=== PATIENT | male | born 1950 | race Caucasian/White ===

== ENCOUNTER 2023-07-21 10:05 | Inpatient (IN) | payer MEDICARE, SELFPAY ==
[2023-07-21 10:06] VITALS: BP 139/82; PULSE 93; RESP 16; TEMP 36.6; O2SAT 97
[2023-07-21 10:35] VITALS: BMI 16.1
[2023-07-21 10:36] VITALS: PULSE 61; RESP 12; O2SAT 98
--- NOTE | 2023-07-21 11:02 | EX.ED.DYSGE1 ---
HPI History of Present Illness Chief Complaint: Sore Throat Detail of Chief Complaint: Sent because of throat pain, difficulty swallowing and history of thrush Informant: patient and spouse/S.O. Onset/Context/Timing Onset: Days Context: Sudden Onset Timing: Continuous Quality: Difficulty in pain swallowing Location: GI Current Severity: Moderate Maximum Severity: Moderate Worsened by: Possibly radiation for stage III lung cancer Relieved by: Nothing Associated Symptoms Associated Symptoms: Shortness of breath and cough Narrative Narrative: Patient is a 73-year-old male with stage III lung cancer with invasion into spine and lower ribs. The lesion is in the right lower lobe. His oncologist is Dr. Dave Rodarte. Patient has not eaten or had much to drink in the last several days. He does endorse thirst and dry mouth. He states when he takes his pills they get stuck in past after some time. Presumption is that they dissolve. He denies history of esophageal strictures or requiring dilation. He does not have a GI specialist. He denies fever or chills. He does have night sweats. He has had significant weight loss. He denies headache, visual, ocular auditory symptoms. He does endorse cough cough is nonproductive. He does report shortness of breath that has gotten worse over the past several weeks. According to outside records Dr. Camarena is his radiation oncologist. Patient does endorse decreased urine output. He denies orthostatic symptoms. He denies bruising easily. He is presently on nystatin suspension for thrush that is felt to be secondary to steroids. [facility] Medical History GERD (gastroesophageal reflux disease) Lung cancer Home Medications dexamethasone 4 mg tablet 8 mg PO DAILY 07/21/23 [History Last Taken 07/21/23] nystatin 100,000 unit/mL oral suspension 5 ml PO Q6H 07/21/23 [History Last Taken 07/20/23] omeprazole 40 mg capsule,delayed release 40 mg PO DAILY 07/21/23 [History Last Taken 07/20/23] oxycodone 5 mg tablet 5 mg PO Q6H PRN pain 07/21/23 [History Last Taken 07/21/23] Allergy/AdvReac Type Severity Reaction Status Date / Time No Known Allergies Allergy Verified 07/21/23 10:07 Social History (Updated 07/21/23 @ 11:[address] Thom Alvarez MD) household members: spouse Smoking Status: Current every day smoker tobacco type: cigarettes substance use type: does not use ROS ROS ED Constitutional Constitutional ED: Reports sweats and weight loss; Denies chills, fever(s) or subjective Eyes Eyes: Denies blurry vision, change in vision or diplopia ENT ENT ED: Reports sore throat; Denies ear pain or rhinorrhea Cardiovascular Cardiovascular: Denies chest pain, orthopnea, palpitations, paroxysmal nocturnal dyspnea or racing heartbeat Respiratory/Chest Respiratory/Chest: Reports cough, dyspnea and dyspnea on exertion; Denies orthopnea, paroxysmal nocturnal dyspnea or sputum Gastrointestinal Gastrointestinal: Denies abdominal pain, nausea or vomiting Genitourinary Genitourinary ED: Denies dysuria, hematuria or urinary frequency Musculoskeletal Musculoskeletal: Denies arthralgias, back pain, myalgias or neck pain Neurologic Neurologic: Denies headache(s), paresthesias or weakness Psychiatric Psychiatric: Reports depression; Denies anxiety Endocrine Endocrinology: Denies cold intolerance or heat intolerance Hematologic/Lymphatic Hematologic/Lymphatic: Reports as per HPI EXAM Physical Exam Const Vital Signs: 07/21/23 10:06 07/21/23 10:36 07/21/23 12:48 Temperature 97.9 F Temperature Source Temporal Pulse Rate 93 61 Respiratory Rate 16 12 22 H Blood Pressure 139/82 H 143/63 H Blood Pressure Mean 101 89 Pulse Ox 97 98 97 Oxygen Delivery Method Room Air Room Air Positive well developed and cachectic Constitutional Narrative: Patient does not look well. There is wasting at the temporal region. General Appearance ED: well developed, cachectic and pallor; Negative for cyanotic, diaphoretic or NAD Nutritional Appearance: cachectic HEENT Reports dry mucous membranes HEENT Narrative: I do not appreciate any thrush. Uvula is midline. Posterior pharynx reveals no erythema. Nares patent. Ears are normal. Mouth ED: Yes dry mucous membranes Mouth: dry mucous membranes Eyes PERRL and EOMs intact bilaterally General Eye ED: Yes pale conjunctiva; Negative for scleral icterus Neck no lymphadenopathy, supple and no JVD Chest Wall palpation of chest normal; Negative for inspection of chest normal Chest Narrative: Radiation burn posterior lower rib cage/lower lung. There is abnormal breath sounds noted. Resp normal respiratory effort and No clear to auscultation bilaterally Auscultation: rales right lower Cardio regular rate, regular rhythm, S1 normal heart sound, S2 normal heart sound and no murmurs GI normal to inspection, nondistended, normoactive bowel sounds, non-tender, non-distended and no masses; Negative for hepatosplenomegaly Palpation: soft Back/Spine no CVA tenderness Back/Spine Narrative: Inspection reveals the area of radiation changes Extremity normal to inspection Neuro oriented x3, CN's II-XII intact bilaterally and no sensory deficits noted Sensorium / Orientation: alert Motor Exam: strength 5/5 throughout Psych Mood & Affect: depressed Skin no wounds and No skin turgor normal General Skin Exam: pallor; Negative for elasticity normal or jaundice MDM MDM MDM Narrative Medical decision making narrative: Dysphagia screen was ordered since patient is reporting difficulty swallowing for some time with history of cancer. Chest x-ray was obtained because of his respiratory complaints and oscillatory findings to determine if he has an obstructive pneumonia and to assess the mediastinal region. Competence metabolic panel was obtained to assess electrolytes, renal function and calcium since he has metastasis to spine and ribs. CBC to confirm suspicion for anemia. History & Record Review Discussion w/independent historian: Patient and Family Lab Data Attestation: I reviewed the patient's lab results. Lab results narrative: White count is elevated 17.8 thousand. There is a. Comprehensive metabolic panel reveals a sodium of 134. CO2 anion gap is normal. BUN is 48 with a creatinine of 1.22 and a BUN/creatinine ratio of 39:1. Albumin is low at 2.4. Labs: Laboratory Results - last 24 hr 07/21/23 11:44 WBC 17.8 H RBC 4.90 Hgb 14.8 Hct 45.7 MCV 93.3 MCH 30.2 MCHC 32.4 RDW Std Deviation 51.8 H RDW Coeff of Lorri 15.3 H Plt Count Immature Gran % (Auto) 0.700 Neut % (Auto) 95.2 H Lymph % (Auto) 1.5 L Nelson % (Auto) 2.2 Eos % (Auto) 0.1 Baso % (Auto) 0.3 Absolute Neuts (auto) 17.0 H Absolute Lymphs (auto) 0.27 L Nucleated RBC % 0 Differential Comment SCANNED Platelet Estimate ADEQUATE Sodium 134 L Potassium 5.1 Chloride 102 Carbon Dioxide 24.0 Anion Gap 8 BUN 48 H Creatinine 1.22 Estim Creat Clear Calc 36.17 Est GFR (MDRD) Af Amer 75 Est GFR (MDRD) Non-Af 62 BUN/Creatinine Ratio 39.3 H Glucose 120 H Calcium 9.7 Total Bilirubin 0.60 AST 15 ALT 13 L Alkaline Phosphatase 100 Total Protein 7.8 Albumin 2.4 L Globulin 5.4 H Albumin/Globulin Ratio 0.4 L Radiography Chest X-Ray - ED: 2 View and Read by ED Physician (There is a 7 x 5-1/2 cm mass that is seen on the lateral. There appears to be deviation of the esophagus and possibly trachea. This could be the cause of his difficulty swallowing there also is evidence of atelectasis. Cannot rule out possible obstructive infiltrate. There is also significant co) Diagnostic Testing: Clinical Impression(s) from Imaging Studies Chest X-Ray 07/21/23 12:33 IMPRESSION: 7 cm x 5.2 cm mass in the supervision of the right lower lobe. Hyperinflation. Increased interstitial markings at the lung bases suggest bibasilar scarring. Almost complete collapse of a mid dorsal vertebra. Electronically Signed: Dexter Washington MD at 12:59 EST , Reviewing again the lateral it is a mid dorsal vertebrae that is completely collapsed. Suspect this is due to a pathologic fracture. Management Discussion w/another healthcare provider: Hospitalist (Hospitalist asked if patient is willing to have a feeding tube placed. I informed him I did not discuss this with the patient or his . I did have a discussion regarding feeding tube. He is willing to have a feeding tube if the cause of his difficulty swallowing is not amenable to less invasiv) and Automation Tech (Spoke to Dr. Coreas regarding patient. 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
[2023-07-21] MEDS: 0.9% Normal Saline (500mL Bag) 500 ML 1000 ML IV (11:21)
[2023-07-21] MEDS: HYDROmorphone 0.5 MG/0.5 ML SYRINGE IV ×3 (11:22→16:07)
[2023-07-21 11:58] LABS: Absolute Lymphocyte Count 0.27 X10^3/uL (0.83-4.51); Basophil# 0.05 X10^3/uL; Basophil% 0.3 % (0-1); Eosinophil# 0.01 X10^3/uL; Eosinophils% 0.1 % (0-5); Hematocrit 45.7 % (40-54); Hemoglobin 14.8 g/dL (13.0-16.5); Lymphocyte # 0.27 X10^3/ul (0.83-4.51); Lymphocyte % 1.5 % (19-41); Mean Corp Hgb Conc 32.4 g/dL (32-36); Mean Corpuscular Hgb 30.2 pg (27.0-32.0); Mean Corpuscular Volume 93.3 fL (80-94); Monocyte# 0.39 X10^3/uL; Monocyte% 2.2 % (0-10); NRBC Flagged by Analyzer 0 % (0-5); Neutrophil % 95.2 % (47-70); POSITIVE COUNT YES; POSITIVE DIFFERENTIAL YES; RBC Distribution Width CV 15.3 % (11.6-14.6); RBC Distribution Width SD 51.8 fl (35.1-43.9); White Blood Count 17.8 K/mm3 (4.4-11.0)
[2023-07-21 12:07] LABS: ALB/GLOB Ratio 0.4 RATIO (0.9-2.4); AST(SGOT) 15 U/L (15-37); Alanine Aminotransfer ALT/SGPT 13 U/L (16-61); Albumin, Serum 2.4 g/dL (3.2-5.0); Alkaline Phosphatase 100 U/L (45-117); Anion Gap 8 (5-15); BUN 48 mg/dL (7-18); BUN/Creat Ratio 39.3 RATIO (10-20); Calcium,Total 9.7 mg/dL (8.5-10.1); Chloride 102 mmol/L (98-107); Creatinine, Serum 1.22 mg/dL (0.70-1.30); EST Glomerular Filtration Rate 62 mL/min (>60); Est Glom Filt Rate - Afr Amer 75 mL/min (>60); Estimated Creatinine Clearance 36.17 ml/min; Globulin 5.4 g/dL (2.2-4.2); Glucose 120 mg/dL (74-106); Potassium 5.1 mmol/L (3.5-5.1); Protein, Total 7.8 g/dL (6.4-8.2); Sodium Level 134 mmol/L (136-145)
[2023-07-21 12:13] LABS: Differential Indicated SCAN CRITERIA MET
[2023-07-21 12:14] LABS: Differential Comment SCANNED; Platelet Estimate ADEQUATE (ADEQ)
--- NOTE | 2023-07-21 12:33 | RAD_ITS ---
STUDY: X-RAY CHEST REASON FOR EXAM: Male, 73 years old. Stage III lung ca, trouble swallowing, dyspnea TECHNIQUE: PA and lateral views of the chest. COMPARISON: None. FINDINGS: EKG electrodes are seen. There is a 7 cm x 5.2 cm mass in the superior segment of the right lower lobe. A neoplastic process should be ruled out. Hyperinflation. Increased interstitial markings at both lung bases more prominent at the right lung base suggestive of bibasilar scarring. Right apical scarring. Normal size heart. Normal mediastinum and thee. Normal visualized pulmonary arteries. There is atherosclerotic calcification of the aortic arch with tortuosity. There is demineralization of the osseous structures. Almost complete collapse of the mid dorsal vertebrae. Normal visualized ribs, clavicles, and shoulders. There is no demonstrated abnormality of the visualized soft tissue structures of the upper abdomen. RAD/Chest PA and Lateral IMPRESSION: 7 cm x 5.2 cm mass in the supervision of the right lower lobe. Hyperinflation. Increased interstitial markings at the lung bases suggest bibasilar scarring. Almost complete collapse of a mid dorsal vertebra. Electronically Signed: Dexter Washington MD at 12:59 EST ,
[2023-07-21 12:48] VITALS: BP 143/63; RESP 22; O2SAT 97
[2023-07-21 13:59] VITALS: BP 152/67; PULSE 62; RESP 14; O2SAT 98
[2023-07-21 14:33] VITALS: BP 142/60; PULSE 61; RESP 18; O2SAT 95
--- NOTE | 2023-07-21 14:37 | PCM.HP.STD ---
[facility] - General General Date of Admission: 07/21/23 HPI Narrative CECILIA ALCANTAR, is a 73 M who presents to the hospital with 1 week of increasing difficulty with swallowing and some pain with swallowing. He noticed that he initially had more issues with solid food and has progressed to the liquids as well. He also has difficulty belching and still has some abdominal pain due to bloating. He does have a history of stage III lung cancer and it appears that the mass could be pushing on his esophagus. The ED physician discussed the case with gastroenterology as 1 to the patient for possible upper GI. Of note he does appear very cachectic and has a BMI of 15 and has been up unable to get appropriate nutrition he has thought about the possibility of a PEG tube if necessary. [facility] Medical History Depression GERD (gastroesophageal reflux disease) Lung cancer Smoker Home Medications dexamethasone 4 mg tablet 8 mg PO DAILY 07/21/23 [History Last Taken 07/21/23] nystatin 100,000 unit/mL oral suspension 5 ml PO Q6H 07/21/23 [History Last Taken 07/20/23] omeprazole 40 mg capsule,delayed release 40 mg PO DAILY 07/21/23 [History Last Taken 07/20/23] oxycodone 5 mg tablet 5 mg PO Q6H PRN pain 07/21/23 [History Last Taken 07/21/23] Allergy/AdvReac Type Severity Reaction Status Date / Time No Known Allergies Allergy Verified 07/21/23 10:07 Family History (Updated 07/21/23 @ 14:[address] Peter Leon MD) Other Cancer Heart disease Surgical History (Updated 07/21/23 @ 14:[address] Peter Leon MD) H/O lymph node excision Social History (Updated 07/21/23 @ 11:[address] Thom Alvarez MD) household members: spouse Smoking Status: Current every day smoker tobacco type: cigarettes substance use type: does not use ROS Constitutional Constitutional: Denies chills, fatigue, fever(s) or malaise Eyes Eyes: Denies blurry vision ENT HEENT: Denies headache(s) or nasal discharge Cardiovascular Cardiovascular: Denies chest pain, dyspnea on exertion or syncope Respiratory/Chest Respiratory/Chest: Denies cough, shortness of breath at rest or shortness of breath with exertion Gastrointestinal Gastrointestinal: Reports dysphagia and odynophagia; Denies constipation, diarrhea, nausea or vomiting Genitourinary Genitourinary: Denies dysuria Neurologic Neurologic: Denies focal weakness, numbness or tremor(s) Psychiatric Psychiatric: Denies anxiety or depression Vital Signs Vital Signs Vital Signs: 07/21/23 10:06 07/21/23 10:36 07/21/23 12:48 Temperature 97.9 F Temperature Source Temporal Pulse Rate 93 61 Respiratory Rate 16 12 22 H Blood Pressure 139/82 H 143/63 H Blood Pressure Mean 101 89 Pulse Ox 97 98 97 Oxygen Delivery Method Room Air Room Air 07/21/23 13:59 07/21/23 14:33 Temperature Temperature Source Pulse Rate 62 61 Respiratory Rate 14 18 Blood Pressure 152/67 H 142/60 H Blood Pressure Mean 95 87 Pulse Ox 98 95 Oxygen Delivery Method Weight Weight: 103 lb Body Mass Index (BMI) 16.1 Physical Exam Narrative General: Alert, Oriented x3, Cooperative, No apparent distress, cachectic with temporal wasting HEENT: Atraumatic, PERRLA, EOMI, Normocephalic Oral: Moist Mucosa, signs of thrush Neck: Supple, No JVD Lungs: Diminished right greater than left, Normal air movement, No rhonchi, No wheeze, No rales Cardiovascular: Regular rate, Regular Rhythm, Normal S1, Normal S2, No murmurs Abdomen: Soft, Non Tender, Non-Distended, No Hepato-splenomegaly Extremities: No edema, Capillary Refill Less than 3 Seconds Skin: No rashes, No breakdown Musculoskeletal: No Tenderness to Palpation of Joints or Extremities Neurological: Moves all extremities, Sensory exam intact to light touch and pain Psych/Mental Status: Normal Affect, Appropriate Results Lab / Micro Data 07/21/23 11:44 07/21/23 11:44 Labs: Laboratory Results - last 24 hr 07/21/23 11:44: WBC 17.8 H, RBC 4.90, Hgb 14.8, Hct 45.7, MCV 93.3, MCH 30.2, MCHC 32.4, RDW Std Deviation 51.8 H, RDW Coeff of Lorri 15.3 H, Plt Count , Immature Gran % (Auto) 0.700, Neut % (Auto) 95.2 H, Lymph % (Auto) 1.5 L, Archer % (Auto) 2.2, Eos % (Auto) 0.1, Baso % (Auto) 0.3, Absolute Neuts (auto) 17.0 H, Absolute Lymphs (auto) 0.27 L, Nucleated RBC % 0, Differential Comment SCANNED, Platelet Estimate ADEQUATE, Sodium 134 L, Potassium 5.1, Chloride 102, Carbon Dioxide 24.0, Anion Gap 8, BUN 48 H, Creatinine 1.22, Estim Creat Clear Calc 36.17, Est GFR (MDRD) Af Amer 75, Est GFR (MDRD) Non-Af 62, BUN/Creatinine Ratio 39.3 H, Glucose 120 H, Calcium 9.7, Total Bilirubin 0.60, AST 15, ALT 13 L, Alkaline Phosphatase 100, Total Protein 7.8, Albumin 2.4 L, Globulin 5.4 H, Albumin/Globulin Ratio 0.4 L Radiology Impression Chest X-Ray 07/21/23 12:33 IMPRESSION: 7 cm x 5.2 cm mass in the supervision of the right lower lobe. Hyperinflation. Increased interstitial markings at the lung bases suggest bibasilar scarring. Almost complete collapse of a mid dorsal vertebra. Electronically Signed: Dexter Washington MD at 12:59 EST , Assessment & Plan Assessment/Plan (1) Dysphagia: (2) Odynophagia: PLAN: Plan 1. Dysphagia with odynophagia secondary to possible thrush in setting of stage III lung cancer receiving palliative radiation therapy/thrush/severe protein calorie malnutrition ? He states that his cancer is not curable and that once he completes radiation he will go to immunotherapy with Keytruda ? Over the last week he has had progressive worsening of swallowing and now he has difficulty even swallowing liquids. He also has difficulty with bloating and is unable to belch indicative of a significant esophageal narrowing at the GE junction ? We will place on Protonix and consult gastroenterology ? He is supposed to be on nystatin for thrush and potential esophageal candidiasis, will transition his oral nystatin to IV Diflucan ? We will provide him with morphine for his cancer pain ? We will consult nutritional services ? Unclear as to the source of his leukocytosis, will monitor however he is afebrile and chest x-ray is negative for pneumonia. ? I did have a 20-minute conversation on advance care planning based on his cancer in terms of prognosis as well as CODE STATUS and palliative care DVT: Heparin 77 minutes was spent on direct patient care, including documentation as well as chart review and collaboration with colleagues Charges/Coding Visit Charges Inpatient E&M: 82008 Init Hosp L3 Procedures Hospitalists Procedures: 39646 Advncd Care Plan 30 Min
--- NOTE | 2023-07-21 16:12 | EX.PCM.CON.G ---
HPI Consult Data Date of Consult: 07/21/23 HPI Narrative Reason for Consultation: Dysphagia HPI Narrative: CECILIA ALCANTAR, is a 73 M who presents with worsening esophageal dysphagia. He noticed that he initially had more issues with solid food and has progressed to the liquids as well. He also has difficulty belching and still has some abdominal pain due to bloating. He does have a history of stage III lung cancer and it appears that the mass could be pushing on his esophagus. Imaging also notes that his stage III lung cancer has invasion into spine and lower ribs. The lesion is in the right lower lobe. His oncologist is Dr. Dave Rodarte. Patient has not eaten or had much to drink in the last several days. He does endorse thirst and dry mouth. He states when he takes his pills they get stuck in past after some time. Presumption is that they dissolve. He denies history of esophageal strictures or requiring dilation. He does not have a GI specialist. He denies fever or chills. He does have night sweats. He has had significant weight loss. He denies headache, visual, ocular auditory symptoms. He does endorse cough cough is nonproductive. He does report shortness of breath that has gotten worse over the past several weeks. According to outside records Dr. Camarena is his radiation oncologist. Patient does endorse decreased urine output. He denies orthostatic symptoms. He denies bruising easily. He is presently on nystatin suspension for thrush that is felt to be secondary to steroids. PFSH Medical History Depression GERD (gastroesophageal reflux disease) Lung cancer Smoker Home Medications dexamethasone 4 mg tablet 8 mg PO DAILY 07/21/23 [History Last Taken 07/21/23] nystatin 100,000 unit/mL oral suspension 5 ml PO Q6H 07/21/23 [History Last Taken 07/20/23] omeprazole 40 mg capsule,delayed release 40 mg PO DAILY 07/21/23 [History Last Taken 07/20/23] oxycodone 5 mg tablet 5 mg PO Q6H PRN pain 07/21/23 [History Last Taken 07/21/23] Allergy/AdvReac Type Severity Reaction Status Date / Time No Known Allergies Allergy Verified 07/21/23 10:07 Family History (Updated 07/21/23 @ 14:[address] Peter Leon MD) Other Cancer Heart disease Surgical History H/O lymph node excision Social History (Updated 07/21/23 @ 11:[address] Thom Alvarez MD) household members: spouse Smoking Status: Current every day smoker tobacco type: cigarettes substance use type: does not use ROS Constitutional Constitutional: Denies chills, fatigue, fever(s) or malaise Eyes Eyes: Denies blurry vision ENT HEENT: Denies headache(s) or nasal discharge Cardiovascular Cardiovascular: Denies chest pain, dyspnea on exertion or syncope Respiratory/Chest Respiratory/Chest: Denies cough, shortness of breath at rest or shortness of breath with exertion Gastrointestinal Gastrointestinal: Reports dysphagia and odynophagia; Denies constipation, diarrhea, nausea or vomiting Genitourinary Genitourinary: Denies dysuria Neurologic Neurologic: Denies focal weakness, numbness or tremor(s) Psychiatric Psychiatric: Denies anxiety or depression Physical Exam Narrative General: Alert, oriented, thin HEENT: Atraumatic, normocephalic Eyes: Anicteric, normal conjunctiva, extraocular movements grossly intact Neck: Supple Respiratory: Clear to auscultation bilaterally, normal respiratory effort Cardiovascular: Regular rate and rhythm GI: Soft, nontender, nondistended Extremities: No edema Musculoskeletal: Moving all extremities Neuro: No overt focal neurological deficits Skin: No rashes appreciated Psych: Cooperative Medical Records Data Medical Nutrition Assessment Dietitian: Malnutrition Criteria Met Start: 07/22/23 10:23 Freq: Status: Active Protocol: Document 07/22/23 10:23 (Rec: 07/22/23 10:23 [id number]) Nutrition Malnutrition Evidence of Malnutrition Exists Yes Malnutrition (severe): Acute Illness/Injury Evidenced By Suboptimal Energy Intake ( Severe),Weight Loss (Severe), Physical Changes (Severe) Clinical Problem Chronic Disease or Condition Related Malnutrition Etiology severe acute on likely chronic malnutrition related to inadequate energy intake d/t swallowing difficulty Signs/Symptoms as evidenced by unintentional 21.7#/18% wt loss <1-2 months, estimated PO intake meeting < 50% of estimated energy needs > 1 week, severe muscle wasting/fat loss evident per physical exam in orbital, clavicle, acromion, and temporal area, BMI 15.4 Status Active Problem Recommendation Dietitian Recommendations/Changes Recommend advance diet as tolerated to regular-texture/ consistency per ANESTHESIOLOGIST ASSISTANT CERTIFIED; ensure w/ meals when diet advanced. If pt agreeable to PEG placement, will provide additional recommendations as indicated. Lab / Micro Data 07/22/23 07:05 07/22/23 07:05 Labs: Laboratory Results - last 24 hr 07/22/23 07:05: WBC 20.0 H, RBC 4.28 L, Hgb 12.9 L, Hct 40.6, MCV 94.9 H, MCH 30.1, MCHC 31.8 L, RDW Std Deviation 53.1 H, RDW Coeff of Lorri 15.5 H, Plt Count 270, MPV 9.7, Immature Gran % (Auto) 0.700, Neut % (Auto) 94.6 H, Lymph % (Auto) 1.4 L, [place] % (Auto) 3.1, Eos % (Auto) 0.0, Baso % (Auto) 0.2, Absolute Neuts (auto) 18.9 H, Absolute Lymphs (auto) 0.28 L, Nucleated RBC % 0, Differential Comment COMMENT, Sodium 133 L, Potassium 4.3, Chloride 106, Carbon Dioxide 19.0 L, Anion Gap 8, BUN 43 H, Creatinine 0.86, Estim Creat Clear Calc 48.94, Est GFR (MDRD) Af Amer 112, Est GFR (MDRD) Non-Af 92, BUN/Creatinine Ratio 49.7 H, Glucose 96, Calcium 8.7 Assessment & Plan Assessment/Plan (1) Dysphagia: (2) Odynophagia: PLAN: Plan 73-year-old gentleman with an unfortunate recent diagnosis stage III squamous cell carcinoma of the right lung with metastasis to the mediastinum affecting his esophagus causing esophageal dysphagia and resulting in cachexia. He is undergoing palliative radiation along with Keytruda therapy by his oncologist Dr. Rodarte. Recommend evaluation of his upper GI tract with upper endoscopy. He may be amenable to stent placement plus or minus PEG tube placement. He was explained alternative, risk, benefits include not withstanding bleeding, infection, sepsis, perforation, need for emergent and . He will have an ASA of 3. Charges/Coding Visit Charges Inpatient E&M: 50489 Init Hosp L3
[2023-07-21 18:02] VITALS: BP 128/56; PULSE 70; RESP 20; TEMP 36.9; O2SAT 96
[2023-07-21 18:22] VITALS: BMI 15.3
[2023-07-21] MEDS: 0.9% Saline Lock 10 ML Syringe IV ×2 (19:51→20:38)
[2023-07-21] MEDS: Morphine 4 MG/ML Syringe IV (19:52)
[2023-07-21] MEDS: 0.9% Normal Saline (250mL Bag) 250 ML 15 ML IV (20:37)
[2023-07-21] MEDS: dexAMETHasone 10 MG/ML Vial 6 MG IV (20:39)
[2023-07-21] MEDS: Pantoprazole Sodium 40 MG in 0.9% Normal Saline (100mL MB+) 100 ML 330 MG IV (20:44)
[2023-07-21] MEDS: Heparin Injection (Vial) 5,000 UNIT/ML VIAL 5000 UNIT SC (22:24)
[2023-07-21] MEDS: Menthol/Lanolin/Calamine/Znox 113 GM Tube 1 APPLIC TOPICAL (22:26)
[2023-07-22] VITALS (10 sets, daily range): BP systolic 128–165; BP diastolic 59–81; PULSE 57–78; RESP 16–20; TEMP 36.3–36.6; O2SAT 93–98; BMI 15.3
[2023-07-22] MEDS: 0.9% Saline Lock 10 ML Syringe IV ×3 (02:58→17:43)
[2023-07-22] MEDS: Morphine 4 MG/ML Syringe IV ×3 (02:58→17:43)
[2023-07-22] MEDS: Menthol/Lanolin/Calamine/Znox 113 GM Tube 1 APPLIC TOPICAL ×3 (05:39→22:55)
--- NOTE | 2023-07-22 06:00 | EKG12_ITS ---
Test Reason : AM EKG Blood Pressure : / mmHG Vent. Rate : 068 BPM Atrial Rate : 068 BPM P-R Int : 106 ms QRS Dur : 088 ms QT Int : 406 ms P-R-T Axes : 068 065 042 degrees QTc Int : 431 ms Sinus rhythm with short [place] Otherwise normal ECG When compared with ECG of 17-AUG-2013 08:45, No significant change was found Confirmed by CARLOS DORAN, FLORECITA ([id number]), writer editor LILI WORKMAN ([id number]) on 07/28/2023 11:06:02 AM Referred By: EVERETT Confirmed By:PATRICIA GONZALEZ MD
--- NOTE | 2023-07-22 07:32 | PN.HOSP_ITS ---
Reason for Visit Reason for Visit: Diagnoses Dysphagia, unspecified (07/21/23) Subjective Subjective Patient having slightly less burning, patient for scope. Was up moving with physical therapy and did fairly well Objective Data Objective Data Vital Signs: Vital Signs Temp Pulse Resp BP Pulse Ox O2 Del Method 97.4 F L 64 18 148/76 H 95 Room Air 07/22/23 02:55 07/22/23 02:55 07/22/23 02:55 07/22/23 02:55 07/22/23 02:55 07/22/23 03:05 Oxygen Delivery Method Room Air Weight: 44.565 kg Body Mass Index (BMI) 15.3 Intake & Output: Intake and Output for Last 24 Hours 07/20/23 07/21/23 07/22/23 23:59 23:59 23:59 Intake Total 911.75 / 911.75 50 / 50 Balance 911.75 / 911.75 50 / 50 Lab / Micro Data 07/22/23 07:05 07/22/23 07:05 Labs: Laboratory Results - last 24 hr 07/21/23 11:44: WBC 17.8 H, RBC 4.90, Hgb 14.8, Hct 45.7, MCV 93.3, MCH 30.2, MC HC 32.4, RDW Std Deviation 51.8 H, RDW Coeff of Lorri 15.3 H, Plt Count , Immature Gran % (Auto) 0.700, Neut % (Auto) 95.2 H, Lymph % (Auto) 1.5 L, Cocke % (Auto) 2.2, Eos % (Auto) 0.1, Baso % (Auto) 0.3, Absolute Neuts (auto) 17.0 H, Absolute Lymphs (auto) 0.27 L, Nucleated RBC % 0, Differential Comment SCANNED, Platelet Estimate ADEQUATE, Sodium 134 L, Potassium 5.1, Chloride 102, Carbon Dioxide 24.0, Anion Gap 8, BUN 48 H, Creatinine 1.22, Estim Creat Clear Calc 36.17, Est GFR (MDRD) Af Amer 75, Est GFR (MDRD) Non-Af 62, BUN/Creatinine Ratio 39.3 H, Glucose 120 H, Calcium 9.7, Total Bilirubin 0.60, AST 15, ALT 13 L, Alkaline Phosphatase 100, Total Protein 7.8, Albumin 2.4 L, Globulin 5.4 H, Albumin/Globulin Ratio 0.4 L Radiography Diagnostic Testing: Radiology Impression Chest X-Ray 07/21/23 12:33 IMPRESSION: 7 cm x 5.2 cm mass in the supervision of the right lower lobe. Hyperinflation. Increased interstitial markings at the lung bases suggest bibasilar scarring. Almost complete collapse of a mid dorsal vertebra. Electronically Signed: Dexter Washington MD at 12:59 EST , Physical Exam Narrative General: Alert, oriented, thin HEENT: Atraumatic, normocephalic Eyes: Anicteric, normal conjunctiva, extraocular movements grossly intact Neck: Supple Respiratory: Clear to auscultation bilaterally, normal respiratory effort Cardiovascular: Regular rate and rhythm GI: Soft, nontender, nondistended Extremities: No edema Musculoskeletal: Moving all extremities Neuro: No overt focal neurological deficits Skin: No rashes appreciated Psych: Cooperative Assessment & Plan Assessment/Plan (1) Dysphagia: (2) Odynophagia: PLAN: Plan 1. Dysphagia with odynophagia secondary to possible thrush in setting of stage III lung cancer receiving palliative radiation therapy/thrush/severe protein calorie malnutrition ? He states that his cancer is not curable and that once he completes radiation he will go to immunotherapy with Keytruda ? Over the last week he has had progressive worsening of swallowing and now he has difficulty even swallowing liquids. He also has difficulty with bloating and is unable to belch indicative of a significant esophageal narrowing at the GE junction ? We will place on Protonix and consult gastroenterology ? He is supposed to be on nystatin for thrush and potential esophageal candidiasis, will transition his oral nystatin to IV Diflucan ? We will provide him with morphine for his cancer pain ? We will consult nutritional services ? Unclear as to the source of his leukocytosis, will monitor however he is afebrile and chest x-ray is negative for pneumonia. ? Admitting physician did have a 20-minute conversation on advance care planning based on his cancer in terms of prognosis as well as CODE STATUS and palliative care -07/22: Follows with Dr. Rodarte for oncology as outpatient. Continue fluconazole, patient reportedly on dexamethasone daily. Continue Protonix. GI consult pending. We will also consult speech therapy, dietitian consult DVT: Heparin 35 minutes was spent on direct patient care, including documentation as well as chart review and collaboration with colleagues Charges/Coding Visit Charges Inpatient E&M: 52446 Subs Hosp L2
[2023-07-22 07:37] LABS: Absolute Lymphocyte Count 0.28 X10^3/uL (0.83-4.51); Absolute Neutrophil Count 18.9 X10^3/uL (2.0-7.7); Basophil# 0.03 X10^3/uL; Basophil% 0.2 % (0-1); Hematocrit 40.6 % (40-54); Hemoglobin 12.9 g/dL (13.0-16.5); Lymphocyte # 0.28 X10^3/ul (0.83-4.51); Lymphocyte % 1.4 % (19-41); Mean Corp Hgb Conc 31.8 g/dL (32-36); Mean Corpuscular Hgb 30.1 pg (27.0-32.0); Mean Corpuscular Volume 94.9 fL (80-94); Mean Platelet Vol. 9.7 fl (6.2-12.0); Monocyte# 0.61 X10^3/uL; Monocyte% 3.1 % (0-10); NRBC Flagged by Analyzer 0 % (0-5); Neutrophil # 18.93 X10^3/uL (2.7-7.7); Neutrophil % 94.6 % (47-70); POSITIVE DIFFERENTIAL YES; Platelet Count 270 K/mm3 (150-450); RBC Distribution Width CV 15.5 % (11.6-14.6); RBC Distribution Width SD 53.1 fl (35.1-43.9); Red Blood Count 4.28 M/mm3 (4.6-6.2)
[2023-07-22 07:40] LABS: Differential Indicated SCAN CRITERIA MET
[2023-07-22 08:03] LABS: Anion Gap 8 (5-15); BUN 43 mg/dL (7-18); BUN/Creat Ratio 49.7 RATIO (10-20); Calcium,Total 8.7 mg/dL (8.5-10.1); Chloride 106 mmol/L (98-107); Creatinine, Serum 0.86 mg/dL (0.70-1.30); EST Glomerular Filtration Rate 92 mL/min (>60); Est Glom Filt Rate - Afr Amer 112 mL/min (>60); Estimated Creatinine Clearance 48.94 ml/min; Glucose 96 mg/dL (74-106); Potassium 4.3 mmol/L (3.5-5.1); Sodium Level 133 mmol/L (136-145)
[2023-07-22] MEDS: Pantoprazole Sodium 40 MG in 0.9% Normal Saline (100mL MB+) 100 ML 330 MG IV (09:04)
[2023-07-22] MEDS: dexAMETHasone 10 MG/ML Vial 6 MG IV (09:05)
[2023-07-22] MEDS: 0.9% Normal Saline (250mL Bag) 250 ML 15 ML IV (09:07)
--- NOTE | 2023-07-22 13:00 | CASEMGMT ---
TERESA PACK Assessment: Face to Face with pt for initial transition planning/care coordination assessment. RN RAMONE introduced self and role at [facility], pt voices understanding and consents to assessment. Pt is A&O x4 and answers all questions appropriately at this time. Pt and dtr present in room. Pt agreeable to assessment with family present. Care providers, pharmacy, and demographics verified/updated. Admitting Dx:dysphagia PCP:Jessica Specialists:Cayden, onc; Migue, radiation; Pt to start seeing pain mgmt/palliative in [place] Preferred Pharmacy: [facility] Insurance: [facility] Prescription Benefit: yes LNOK: Gi Navas, Living Arrangements: Pt lives with in a single story home with 2 steps to enter with a rail. Pt reports he is I in ADL's. Pt states he would like respite for so she can nap, or have someone prepare meals or have someone to transport him to radiation. He states that his has sleep apnea and it is not very safe for her to drive. Discussed private duty with pt and , he is agreeable to a list of agencies but states he does not think he can afford. Pt is to start receiving daily meals through [employer] this week. Transportation: Pt was driving self but has not in the last couple of days. Pt is transporting. DME:shower chair, cane, walker, lift chair, hand rails in the bathroom HHC/SNF: Pt denies hx of Pt states no concerns with going home at time of dc. Pt denies need for SN for medication/disease education or therapy for stengthening despite falling in the home twice. Pt states he studied karate and can rehab himself. Updated SW with request to see for resources. Pt states no further concerns/needs. CM to follow. Advised pt to ask CM if any further question/concerns/needs arise, voices understanding. Pt Goal: Home Plan: Home
--- NOTE | 2023-07-22 13:39 | CHAPLAIN ---
Type of Pastoral Visit _x__ Initial Visit ___ Follow-up Visit ___ On-call Visit ___ General Patient Visit ___ Spiritual Assessment ___ Family Conference ___ Bereavement ___ Rapid Response ___ Code Blue ___ Other (describe below) Pastoral Care Referral From _x__ Patient ___ Family ___ Nurse ___ Physician ___ Plate Washer ___ Powertrain Calibration Engineer ___ Other (describe below) Sacrament/Intervention _x__ Active listening ___ Anointing ___ Rastafari ___ Bereavement ___ Communion _x__ Daniela exploration ___ _x__ Life review _x__ Prayer ___ Reconciliation ___ Sacrament of Sick _x__ Supportive presence ___ Wedding ___ Other (describe below) Pastoral Comments patient is welcoming; family member is in the room; pt is very talkative and explains his illness and how he is coping with it; pt expresses great need to have all the information and for medical people to explain things to him; life review and personal philosophy of muslim is spoken by the patient; pt identifies several things that help foster peace and calm as he admits to having anxiety over issues and the unknown; pt has personal daniela thoughts and is from any organized muslim; pt is open to prayer that is generic and not cheondoism; presence, exploration, listening, and prayer given for support
[2023-07-22] MEDS: Lactated Ringers 1,000 ML 15 ML IV (14:40)
--- NOTE | 2023-07-22 15:30 | EGD_PTH ---
PATIENT: CECILIA ALCANTAR LOC: MS3 U#:[id number] AGE/SX: 73/M ROOM: [facility] [place] RE07/21/[address]: Dr. Olena Kraft MD : 1950 BED: 1 DIS: 07/24/2023 SPEC #: [id number] RECD: 07/22/23 18:31 STATUS: KAYLIN THOMSON #: [id number] MAE: 07/22/23 15:[address]: Olena Kraft DEPT: SURGICAL PATHOLOGY RECD BY: Cecilia Espinoza ENTERED: 07/23/23 10:48 SP TYPE: EGD BIOPSY OT DR: DO Dr. Peter Mac MD Tissues: Esophageal mucous membrane Procedures: Surgery Specimen Level IV HEADER OPERATION: EGD PRE-OP DIAGNOSIS: Inability to swallow TISSUE SUBMITTED: Random esophagus MICROSCOPIC DIAGNOSIS Esophagus, random biopsy: Fragments of squamous mucosa with extensive ulceration and fibrinopurulent exudation. See comment. SJ: 07/24/2023 COMMENT Focal viral cytopathic effects are also noted. Special stain for fungi is negative for organisms; matched control is appropriate. Correlation with clinical, endoscopic findings and appropriate follow up are necessary. MICROSCOPIC DESCRIPTION Slides are reviewed. GROSS DESCRIPTION Received is one container labeled with the patient name and designated random esophagus. The specimen consists of multiple irregular fragments of light mulligan soft tissue that in aggregate measure 1.5 x 0.3 x 0.1 cm. The specimen is totally submitted in one cassette. / SPRING:dora 07/23/23 TC: 2 CPT: 96584, 75010
--- NOTE | 2023-07-22 16:44 | OP.CCLET_ITS ---
07/22/2023 Yenifer Lopez Do Re : Upper GI endoscopy procedure for Alfred Hernandez Jessica This procedure was performed on Saturday, July 22, 2023. My impressions and recommendations are as follows: Impressions : - Severe chemotherapy/radiation esophagitis with no bleeding. Biopsied. - Normal stomach. - No gross lesions in the first portion of the duodenum. Recommendations : - [facility]. - Clear liquid diet. - No aspirin, ibuprofen, naproxen, or other non-steroidal anti-inflammatory drugs for 10 days. - Await pathology results. Medications - Give Protonix (pantoprazole): initiate therapy with 80 mg IV bolus, then 8 mg/hr IV by continuous infusion. - Use metoclopramide 5 mg PO QID; 30 min AC and HS. - Magic mouthwash-1 part diphenhydramine 12.5 mg 5 mL elixir, 1 part Maalox(no substitution), 1 part 2% viscous lidocaine Quantity: 200 mL Directions: Swish, gargle and swallow every 4-6 hours and hold for sedation. If sedation last too long because of the diphenhydramine it can be removed. Helpful Hints to Manage Swallowing Problems Cut food into small pieces and chew thoroughly, or puree your food in a tetryl blender operator. Moisten your food with gravy, sauces, broth, or milk to make it easier to swallow. Drink sips of liquid between bites of food. Soft foods are easier to swallow. Try gelatin, yogurt, pudding, pasta, cooked vegetables, canned fruit, soft-cooked eggs, applesauce, cooked cereal, cottage cheese, ice cream, and sherbet. Cool, but not frozen, foods may be soothing to an irritated throat. Allow hot foods to cool to room temperature. Rough foods like nuts, crackers, dry cereal, and raw fruits and vegetables may irritate your throat and esophagus and should be avoided. Rolette foods like oranges, grapefruit, chen, limes, and tomatoes may cause increased discomfort in your throat and esophagus. Avoid spicy foods. Do not use alcohol or tobacco. Use toothpaste that does not contain peroxide. Use mouthwash that does not contain peroxide or alcohol. My findings are described in the full procedure note, which is enclosed. If I can be of further assistance, please feel free to contact me at . Sincerely, Laci Friend, 07/22/2023 4:44:06 PM This report has been signed electronically.
--- NOTE | 2023-07-22 16:44 | OP.EGD_ITS ---
Patient Name: Alfred Navas Procedure Date: 07/22/2023 4:18 PM Date of : 1950 Age: 73 Procedure: Upper GI endoscopy Indications: Dysphagia Providers: Laci Coreas DO Medicines: Monitored Anesthesia Care Patient Profile: This is a 73 year old male. Refer to note in patient chart for documentation of history and physical. Patient has symptoms of dysphagia with both liquids and solids. Complications: No immediate complications. Procedure: Pre-Anesthesia Assessment: - Prior to the procedure, a History and Physical was performed, and patient medications and allergies were reviewed. The patient is competent. The risks and benefits of the procedure and the sedation options and risks were discussed with the patient. All questions were answered and informed consent was obtained. Patient identification and proposed procedure were verified by the physician in the pre-procedure area. Mental Status Examination: alert and oriented. Airway Examination: normal oropharyngeal airway and neck mobility. Respiratory Examination: clear to auscultation. CV Examination: normal. Prophylactic Antibiotics: The patient does not require prophylactic antibiotics. Prior Anticoagulants: The patient has taken no anticoagulant or antiplatelet agents. ASA Grade Assessment: IV - A patient with severe systemic disease that is a constant threat to life. After reviewing the risks and benefits, the patient was deemed in satisfactory condition to undergo the procedure. The anesthesia plan was to use monitored anesthesia care (MAC). Immediately prior to administration of medications, the patient was re-assessed for adequacy to receive sedatives. The heart rate, respiratory rate, oxygen saturations, blood pressure, adequacy of pulmonary ventilation, and response to care were monitored throughout the procedure. The physical status of the patient was re-assessed after the procedure. After obtaining informed consent, the endoscope was passed under direct vision. Throughout the procedure, the patient's blood pressure, pulse, and oxygen saturations were monitored continuously. The Endoscope was introduced through the mouth, and advanced to the second part of duodenum. The upper GI endoscopy was accomplished without difficulty. The patient tolerated the procedure well. Scope In: 4:24:39 PM Scope Out: 4:29:46 PM Total Procedure Duration Time 0 hours 5 minutes 7 seconds Findings: Severe esophagitis with no bleeding was found 20 to 40 cm from the incisors. Biopsies were taken with a cold forceps for histology. Verification of patient identification for the specimen was done. Estimated blood loss was minimal. The entire examined stomach was normal. No gross lesions were noted in the first portion of the duodenum. Impression: - Severe chemotherapy/radiation esophagitis with no bleeding. Biopsied. - Normal stomach. - No gross lesions in the first portion of the duodenum. Recommendation: - [facility]. - Clear liquid diet. - No aspirin, ibuprofen, naproxen, or other non-steroidal anti-inflammatory drugs for 10 days. - Await pathology results. Medications - Give Protonix (pantoprazole): initiate therapy with 80 mg IV bolus, then 8 mg/hr IV by continuous infusion. - Use metoclopramide 5 mg PO QID; 30 min AC and HS. - Magic mouthwash-1 part diphenhydramine 12.5 mg 5 mL elixir, 1 part Maalox(no substitution), 1 part 2% viscous lidocaine Quantity: 200 mL Directions: Swish, gargle and swallow every 4-6 hours and hold for sedation. If sedation last too long because of the diphenhydramine it can be removed. Helpful Hints to Manage Swallowing Problems Cut food into small pieces and chew thoroughly, or puree your food in a machine lay out worker. Moisten your food with gravy, sauces, broth, or milk to make it easier to swallow. Drink sips of liquid between bites of food. Soft foods are easier to swallow. Try gelatin, yogurt, pudding, pasta, cooked vegetables, canned fruit, soft-cooked eggs, applesauce, cooked cereal, cottage cheese, ice cream, and sherbet. Cool, but not frozen, foods may be soothing to an irritated throat. Allow hot foods to cool to room temperature. Rough foods like nuts, crackers, dry cereal, and raw fruits and vegetables may irritate your throat and esophagus and should be avoided. Risingsun foods like oranges, grapefruit, chen, limes, and tomatoes may cause increased discomfort in your throat and esophagus. Avoid spicy foods. Do not use alcohol or tobacco. Use toothpaste that does not contain peroxide. Use mouthwash that does not contain peroxide or alcohol. Procedure Code(s): --- Professional --- 33986, Esophagogastroduodenoscopy, flexible, transoral; with biopsy, single or multiple CPT copyright 2021 [employer]. All rights reserved. The codes documented in this report are preliminary and upon stars specialist review may be revised to meet current compliance requirements. Laci Coreas DO 07/22/2023 4:44:06 PM This report has been signed electronically. Number of Addenda: 0 Note Initiated On: 07/22/2023 4:18 PM
[2023-07-22] MEDS: Pantoprazole Sodium 80 MG in 0.9% Normal Saline (100mL Bag) 80 ML 10 MG CONT INF (17:43)
[2023-07-22] MEDS: Metoclopramide 10 MG/2 ML Vial 2.5 MG IV (17:55)
[2023-07-22] MEDS: DiphenhydrAMINE 12.5 MG/5 ML UDC PO ×2 (18:01→22:54)
[2023-07-22] MEDS: NYSTATIN 500,000 UNIT/5 ML UDC 500000 UNIT PO ×2 (18:01→22:54)
[2023-07-22] MEDS: Mag Hydrox/Al Hydrox/Simeth 30 ML UDC PO ×2 (18:01→23:59)
[2023-07-22] MEDS: Heparin Injection (Vial) 5,000 UNIT/ML VIAL 5000 UNIT SC (20:47)
[2023-07-23] MEDS: Pantoprazole Sodium 80 MG in 0.9% Normal Saline (100mL Bag) 80 ML 10 MG CONT INF ×2 (03:01→14:50)
[2023-07-23 03:03] VITALS: BP 143/62; PULSE 61; RESP 16; TEMP 36.2; O2SAT 92
[2023-07-23] MEDS: DiphenhydrAMINE 12.5 MG/5 ML UDC PO ×3 (05:23→22:54)
[2023-07-23] MEDS: Mag Hydrox/Al Hydrox/Simeth 30 ML UDC PO ×4 (05:24→23:36)
[2023-07-23] MEDS: Metoclopramide 10 MG/2 ML Vial 2.5 MG IV ×5 (05:25→23:33)
[2023-07-23] MEDS: Menthol/Lanolin/Calamine/Znox 113 GM Tube 1 APPLIC TOPICAL ×3 (05:25→22:54)
[2023-07-23 05:32] VITALS: O2SAT 93
[2023-07-23 07:19] LABS: Absolute Lymphocyte Count 0.24 X10^3/uL (0.83-4.51); Basophil# 0.02 X10^3/uL; Basophil% 0.1 % (0-1); Hematocrit 36.9 % (40-54); Lymphocyte # 0.24 X10^3/ul (0.83-4.51); Lymphocyte % 1.4 % (19-41); Mean Corp Hgb Conc 32.5 g/dL (32-36); Mean Corpuscular Hgb 29.9 pg (27.0-32.0); Mean Corpuscular Volume 91.8 fL (80-94); Mean Platelet Vol. 9.5 fl (6.2-12.0); Monocyte# 0.96 X10^3/uL; Monocyte% 5.5 % (0-10); NRBC Flagged by Analyzer 0 % (0-5); Neutrophil # 16.01 X10^3/uL (2.7-7.7); Neutrophil % 91.9 % (47-70); POSITIVE DIFFERENTIAL YES; Platelet Count 261 K/mm3 (150-450); RBC Distribution Width CV 14.8 % (11.6-14.6); RBC Distribution Width SD 49.1 fl (35.1-43.9); Red Blood Count 4.02 M/mm3 (4.6-6.2); White Blood Count 17.4 K/mm3 (4.4-11.0)
[2023-07-23 07:23] LABS: Differential Indicated SCAN CRITERIA MET
[2023-07-23 07:38] LABS: Anion Gap 4 (5-15); BUN 35 mg/dL (7-18); Calcium,Total 8.6 mg/dL (8.5-10.1); Chloride 102 mmol/L (98-107); Creatinine, Serum 0.85 mg/dL (0.70-1.30); EST Glomerular Filtration Rate 94 mL/min (>60); Est Glom Filt Rate - Afr Amer 113 mL/min (>60); Estimated Creatinine Clearance 49.52 ml/min; Glucose 102 mg/dL (74-106); Potassium 4.1 mmol/L (3.5-5.1); Sodium Level 132 mmol/L (136-145)
[2023-07-23 08:19] LABS: Differential Comment SCANNED
[2023-07-23 09:33] VITALS: BP 110/53; PULSE 76; RESP 16; TEMP 36.8; O2SAT 94
--- NOTE | 2023-07-23 10:36 | PCM.PN.HOSP ---
Reason for Visit Reason for Visit: Diagnoses Dysphagia, unspecified (07/21/23) Subjective Subjective Starting to feel better, is going to try to eat a little bit more for lunch and see how he does, feeling little bit weak today wants to get up and move around to see if he feels Objective Data Objective Data Vital Signs: Vital Signs Temp Pulse Resp BP Pulse Ox O2 Del Method 98.3 F 76 16 110/53 L 94 Room Air 07/23/23 09:33 07/23/23 09:33 07/23/23 09:33 07/23/23 09:33 07/23/23 09:33 07/23/23 09:33 Oxygen Delivery Method Room Air Weight: 44.565 kg Body Mass Index (BMI) 15.3 Intake & Output: Intake and Output for Last 24 Hours 07/21/23 07/22/23 07/23/23 23:59 23:59 23:59 Intake Total 911.75 / 911.75 473.00 / 473.00 293 / 293 Balance 911.75 / 911.75 473.00 / 473.00 293 / 293 Medical Nutrition Assessment Dietitian: Malnutrition Criteria Met Start: 07/22/23 10:23 Freq: Status: Active Protocol: Document 07/22/23 10:23 (Rec: 07/22/23 10:23 [id number]) Nutrition Malnutrition Evidence of Malnutrition Exists Yes Malnutrition (severe): Acute Illness/Injury Evidenced By Suboptimal Energy Intake ( Severe),Weight Loss (Severe), Physical Changes (Severe) Clinical Problem Chronic Disease or Condition Related Malnutrition Etiology severe acute on likely chronic malnutrition related to inadequate energy intake d/t swallowing difficulty Signs/Symptoms as evidenced by unintentional 21.7#/18% wt loss <1-2 months, estimated PO intake meeting < 50% of estimated energy needs > 1 week, severe muscle wasting/fat loss evident per physical exam in orbital, clavicle, acromion, and temporal area, BMI 15.4 Status Active Problem Recommendation Dietitian Recommendations/Changes Recommend advance diet as tolerated to regular-texture/ consistency per EQUIPMENT TECHNICIAN; ensure w/ meals when diet advanced. If pt agreeable to PEG placement, will provide additional recommendations as indicated. Lab / Micro Data 07/23/23 06:25 07/23/23 06:25 Labs: Laboratory Results - last 24 hr 11/08/23 06:25: WBC 17.4 H, RBC 4.02 L, Hgb 12.0 L, Hct 36.9 L, MCV 91.8, MCH 29.9, MCHC 32.5, RDW Std Deviation 49.1 H, RDW Coeff of Lorri 14.8 H, Plt Count 261, MPV 9.5, Immature Gran % (Auto) 1.100 H, Neut % (Auto) 91.9 H, Lymph % (Auto) 1.4 L, Tate % (Auto) 5.5, Eos % (Auto) 0.0, Baso % (Auto) 0.1, Absolute Neuts (auto) 16.0 H, Absolute Lymphs (auto) 0.24 L, Nucleated RBC % 0, Differential Comment SCANNED, Sodium 132 L, Potassium 4.1, Chloride 102, Carbon Dioxide 26.0, Anion Gap 4 L, BUN 35 H, Creatinine 0.85, Estim Creat Clear Calc 49.52, Est GFR (MDRD) Af Amer 113, Est GFR (MDRD) Non-Af 94, BUN/Creatinine Ratio 41.0 H, Glucose 102, Calcium 8.6 Physical Exam Narrative General: Alert, oriented, thin HEENT: Atraumatic, normocephalic Eyes: Anicteric, normal conjunctiva, extraocular movements grossly intact Neck: Supple Respiratory: Clear to auscultation bilaterally, normal respiratory effort Cardiovascular: Regular rate and rhythm GI: Soft, nontender, nondistended Extremities: No edema Musculoskeletal: Moving all extremities Neuro: No overt focal neurological deficits Skin: No rashes appreciated Psych: Cooperative Assessment & Plan Assessment/Plan (1) Dysphagia: (2) Odynophagia: PLAN: Plan 1. Dysphagia with odynophagia secondary to possible thrush in setting of stage III lung cancer receiving palliative radiation therapy/thrush/severe protein calorie malnutrition?found to have severe radiation esophagitis on EGD ? He states that his cancer is not curable and that once he completes radiation he will go to immunotherapy with Keytruda ? Over the last week he has had progressive worsening of swallowing and now he has difficulty even swallowing liquids. He also has difficulty with bloating and is unable to belch indicative of a significant esophageal narrowing at the GE junction ? We will place on Protonix and consult gastroenterology ? He is supposed to be on nystatin for thrush and potential esophageal candidiasis, will transition his oral nystatin to IV Diflucan ? We will provide him with morphine for his cancer pain ? We will consult nutritional services ? Unclear as to the source of his leukocytosis, will monitor however he is afebrile and chest x-ray is negative for pneumonia. ? Admitting physician did have a 20-minute conversation on advance care planning based on his cancer in terms of prognosis as well as CODE STATUS and palliative care -07/22: Follows with Dr. Rodarte for oncology as outpatient. Continue fluconazole, patient reportedly on dexamethasone daily. Continue Protonix. GI consult pending. We will also consult speech therapy, dietitian consult Chucky -07/23: Had EGD with severe radiation esophagitis, multiple medication recommendations made by GI including Magic mouthwash, Protonix, metoclopramide and patient on clear liquid diet, if tolerates diet/advancing of diet and is strong of to get up and move around possible DC home tomorrow DVT: Heparin 35 minutes was spent on direct patient care, including documentation as well as chart review and collaboration with colleagues Charges/Coding Visit Charges Inpatient E&M: 40846 Subs Hosp L2
[2023-07-23] MEDS: dexAMETHasone 10 MG/ML Vial 6 MG IV (10:43)
[2023-07-23] MEDS: Heparin Injection (Vial) 5,000 UNIT/ML VIAL 5000 UNIT SC ×2 (10:43→22:54)
[2023-07-23] MEDS: 0.9% Saline Lock 10 ML Syringe IV ×4 (10:51→23:36)
[2023-07-23] MEDS: NYSTATIN 500,000 UNIT/5 ML UDC 500000 UNIT PO ×4 (11:24→22:54)
[2023-07-23] MEDS: Morphine 4 MG/ML Syringe IV (13:08)
--- NOTE | 2023-07-23 14:54 | CASEMGMT ---
Social Work SW met with pt and and introduced self and role of SW. Pt newly diagnosed with lung cancer 3 months ago. Pt's is support and there are several children who are supportive but unavailable to assist with transportation to appointments. Emotional support provided to pt and regarding diagnosis and related stressors. SW provided resources on transportation, cancer support, and private duty aids. Pt and with medical questions going forward prior to discharge. Physician updated on pt's concerns. MARLENA Rios
[2023-07-23 15:33] VITALS: BP 144/88; PULSE 61; RESP 16; TEMP 36.4; O2SAT 95
[2023-07-23 22:49] VITALS: BP 165/90; PULSE 73; RESP 20; TEMP 36.7; O2SAT 94
[2023-07-24 00:32] VITALS: BP 152/75; PULSE 67; RESP 20; TEMP 36.8; O2SAT 94
[2023-07-24] MEDS: Pantoprazole Sodium 80 MG in 0.9% Normal Saline (100mL Bag) 80 ML 10 MG CONT INF (01:06)
[2023-07-24 03:12] VITALS: BP 152/88; PULSE 73; RESP 18; TEMP 36.7; O2SAT 97
[2023-07-24] MEDS: Mag Hydrox/Al Hydrox/Simeth 30 ML UDC PO ×2 (05:41→12:24)
[2023-07-24] MEDS: DiphenhydrAMINE 12.5 MG/5 ML UDC PO (05:41)
[2023-07-24] MEDS: Metoclopramide 10 MG/2 ML Vial 2.5 MG IV ×2 (05:41→12:19)
[2023-07-24] MEDS: 0.9% Saline Lock 10 ML Syringe IV (05:47)
[2023-07-24] MEDS: Menthol/Lanolin/Calamine/Znox 113 GM Tube 1 APPLIC TOPICAL (05:49)
--- NOTE | 2023-07-24 06:37 | NURSING ---
Patient requesting all four side rails up at this time. He is anxious that he is going to fall out of bed.
--- NOTE | 2023-07-24 07:00 | PN.GI_ITS ---
Subjective Subjective Patient is doing a lot better and has been able to eat without any problems. His esophageal dysphagia is 80% better. He is tolerating new medication regimen. He still has not got the taste back yet but I told him that will take at least a week to return. Objective Data Objective Data Vital Signs: Vital Signs Temp Pulse Resp BP Pulse Ox O2 Del Method 97.5 F L 72 18 140/74 H 94 Room Air 07/24/23 15:20 07/24/23 15:20 07/24/23 15:20 07/24/23 15:20 07/24/23 15:20 07/24/23 15:20 Oxygen Delivery Method Room Air Weight: 98 lb 3.984 oz Body Mass Index (BMI) 15.3 Intake & Output: Intake and Output for Last 24 Hours 07/22/23 07/23/23 07/24/23 23:59 23:59 23:59 Intake Total 473.00 / 473.00 563 / 563 570 / 570 Balance 473.00 / 473.00 563 / 563 570 / 570 Lab / Micro Data 07/24/23 07:15 07/24/23 07:15 Labs: Laboratory Results - last 24 hr 07/24/23 07:15: WBC 16.7 H, RBC 4.41 L, Hgb 13.2, Hct 40.2, MCV 91.2, MCH 29.9, MCHC 32.8, RDW Std Deviation 48.7 H, RDW Coeff of Lorri 14.8 H, Plt Count 244, MPV 9.7, Immature Gran % (Auto) 0.500, Neut % (Auto) 91.5 H, Lymph % (Auto) 2.8 L, [place] % (Auto) 5.0, Eos % (Auto) 0.0, Baso % (Auto) 0.2, Absolute Neuts (auto) 15.3 H, Absolute Lymphs (auto) 0.46 L, Nucleated RBC % 0, Differential Comment SCANNED, Sodium 131 L, Potassium 3.8, Chloride 98, Carbon Dioxide 25.0, Anion Gap 8, BUN 24 H, Creatinine 0.83, Estim Creat Clear Calc 50.71, Est GFR (MDRD) Af Amer 118, Est GFR (MDRD) Non-Af 97, BUN/Creatinine Ratio 29.0 H, Glucose 99, Calcium 8.6 Physical Exam Narrative General: Alert, oriented, thin HEENT: Atraumatic, normocephalic Eyes: Anicteric, normal conjunctiva, extraocular movements grossly intact Neck: Supple Respiratory: Clear to auscultation bilaterally, normal respiratory effort Cardiovascular: Regular rate and rhythm GI: Soft, nontender, nondistended Extremities: No edema Musculoskeletal: Moving all extremities Neuro: No overt focal neurological deficits Skin: No rashes appreciated Psych: Cooperative Assessment & Plan Assessment/Plan (1) Dysphagia: (2) Odynophagia: PLAN: Plan Dysphagia with odynophagia secondary to possible thrush in setting of stage III lung cancer receiving palliative radiation therapy/thrush/severe protein calorie malnutrition?found to have severe radiation esophagitis on EGD ? He states that his cancer is not curable and that once he completes radiation he will go to immunotherapy with Keytruda ? Over the last week he has had progressive worsening of swallowing and now he has difficulty even swallowing liquids. He also has difficulty with bloating and is unable to belch indicative of a significant esophageal narrowing at the GE junction. -07/22: Follows with Dr. Rodarte for oncology as outpatient. Continue fluconaz ole, patient reportedly on dexamethasone daily. Continue Protonix. I was consulted for endoscopic management. We will also consult speech therapy, dietitian consult Chucky -07/23: Had EGD with severe radiation esophagitis, multiple medication recommendations made including Magic mouthwash, Protonix, metoclopramide and patient on clear liquid diet, if tolerates diet/advancing of diet and is strong of to get up and move around possible DC home tomorrow Charges/Coding Visit Charges Inpatient E&M: 41926 [facility] Hosp L3
[2023-07-24 07:56] LABS: Absolute Lymphocyte Count 0.46 X10^3/uL (0.83-4.51); Absolute Neutrophil Count 15.3 X10^3/uL (2.0-7.7); Basophil# 0.03 X10^3/uL; Basophil% 0.2 % (0-1); Hematocrit 40.2 % (40-54); Hemoglobin 13.2 g/dL (13.0-16.5); Lymphocyte # 0.46 X10^3/ul (0.83-4.51); Lymphocyte % 2.8 % (19-41); Mean Corp Hgb Conc 32.8 g/dL (32-36); Mean Corpuscular Hgb 29.9 pg (27.0-32.0); Mean Corpuscular Volume 91.2 fL (80-94); Mean Platelet Vol. 9.7 fl (6.2-12.0); Monocyte# 0.84 X10^3/uL; NRBC Flagged by Analyzer 0 % (0-5); Neutrophil # 15.25 X10^3/uL (2.7-7.7); Neutrophil % 91.5 % (47-70); POSITIVE DIFFERENTIAL YES; Platelet Count 244 K/mm3 (150-450); RBC Distribution Width CV 14.8 % (11.6-14.6); RBC Distribution Width SD 48.7 fl (35.1-43.9); Red Blood Count 4.41 M/mm3 (4.6-6.2); White Blood Count 16.7 K/mm3 (4.4-11.0)
[2023-07-24 08:02] LABS: Differential Indicated SCAN CRITERIA MET
[2023-07-24 08:37] LABS: Anion Gap 8 (5-15); BUN 24 mg/dL (7-18); Calcium,Total 8.6 mg/dL (8.5-10.1); Chloride 98 mmol/L (98-107); Creatinine, Serum 0.83 mg/dL (0.70-1.30); EST Glomerular Filtration Rate 97 mL/min (>60); Est Glom Filt Rate - Afr Amer 118 mL/min (>60); Estimated Creatinine Clearance 50.71 ml/min; Glucose 99 mg/dL (74-106); Potassium 3.8 mmol/L (3.5-5.1); Sodium Level 131 mmol/L (136-145)
[2023-07-24 08:54] VITALS: BP 138/76; PULSE 92; RESP 20; TEMP 36.2; O2SAT 95
[2023-07-24 09:23] LABS: Differential Comment SCANNED
[2023-07-24] MEDS: NYSTATIN 500,000 UNIT/5 ML UDC 500000 UNIT PO (10:31)
[2023-07-24] MEDS: Heparin Injection (Vial) 5,000 UNIT/ML VIAL 5000 UNIT SC (10:32)
[2023-07-24] MEDS: dexAMETHasone 10 MG/ML Vial 6 MG IV (11:09)
--- NOTE | 2023-07-24 13:08 | PCM.DC ---
Discharge Instructions Diet Discharge Diet: - (Pureed diet) Activity Discharge Activity: Return to Normal Activity Follow Up Care Test Results: Test results from this visit will be discussed in further detail at your follow-up appointment, if applicable. Discharge Plan Admission Admit Date/Time: 07/21/23 14:32 Primary Reason for Your Visit: Swallowing difficulty Attending Provider: Olena Kraft Primary Care Provider: Yenifer Lopez Consulting Providers: Peter Leon Instructions Patient Instructions: Dysphagia Aspiration Additional Instructions / Restrictions: DISCHARGE INSTRUCTIONS PLEASE READ *Please take this with you to your next doctors appointment* -You will be discharged on Reglan every 6 hours, nystatin which you will use 4 times daily, Protonix 40 mg twice daily (take this instead of omeprazole), and Magic mouthwash to swish, gargle, and swallow every 4-6 hours, hold for sedation -intermediate teacher use of Reglan (metoclopramide), though the side effect is rare, can be associated with the development of a medical condition called tardive dyskinesia. If you develop any stiff, jerking movements that you cannot control or uncontrollable, abnormal, and repetitive movements especially in your facial muscles please discontinue the medication immediately and contact your physician -It is advised: No aspirin, ibuprofen, naproxen, or other non-steroidal anti-inflammatory drugs for 10 days. -You will need to follow-up with Dr. Coreas with GI in his office upon discharge. Please call his office to schedule your hospital follow-up appointment (ph. [phone]) -Helpful Hints to Manage Swallowing Problems -Cut food into small pieces and chew thoroughly, or puree your food in a blender operator. -Moisten your food with gravy, sauces, broth, or milk to make it easier to swallow. -Drink sips of liquid between bites of food. -Soft foods are easier to swallow. Try gelatin, yogurt, pudding, pasta, cooked vegetables, canned fruit, soft-cooked eggs, applesauce, cooked cereal, cottage cheese, ice cream, and sherbet. -Cool, but not frozen, foods may be soothing to an irritated throat. -Allow hot foods to cool to room temperature. -Rough foods like nuts, crackers, dry cereal, and raw fruits and vegetables may irritate your throat and esophagus and should be avoided. -[place] foods like oranges, grapefruit, chen, limes, and tomatoes may cause increased discomfort in your throat and esophagus. -Avoid spicy foods. -Do not use alcohol or tobacco. -Use toothpaste that does not contain peroxide. -Use mouthwash that does not contain peroxide or alcohol -Please call your primary care provider's office upon discharge to schedule a hospital follow up within 1 week. -For any concerning signs or symptoms please call 911 or proceed to the nearest emergency department Discharge Orders/Prescriptions Prescriptions: New metoclopramide HCl [Reglan] 5 mg tablet 2.5 mg PO Q6H 30 Days Qty: 60 0RF pantoprazole [Protonix] 40 mg tablet,delayed release (DR/EC) 40 mg PO BID 30 Days Qty: 60 0RF MAGIC MOUTH WASH (BMX) 180 mL suspension 10 ml PO Q4H 30 Days Qty: 180 0RF Rx Instructions: diphenhydramine 12.5 mg/5 mL oral liquid 60 mL; aluminum-mag hydroxide-simethicone 400 mg-400 mg-40 mg/5 mL oral susp 60 mL; Lidocaine Viscous 2 % mucosal solution 60 mL; Per 180 mL Continued oxycodone 5 mg tablet 5 mg PO Q6H PRN (Reason: pain) Rx Instructions: 1-2 TABS Q6H PRN PAIN nystatin 100,000 unit/mL suspension 5 ml PO Q6H dexamethasone 4 mg tablet 8 mg PO DAILY Rx Instructions: WITH BREAKFAST Discontinued omeprazole 40 mg capsule,delayed release(DR/EC) 40 mg PO DAILY Referrals / Follow Up: Yenifer Lopez DO [Primary Care Provider] - Within 1 Week Laci Coreas DO [Med Staff - Active Staff] - Care Physician,No Primary [Non-Staff] - Disposition Disposition (needs filled in before D/C Order can be placed): Home, Self Care
--- NOTE | 2023-07-24 14:00 | CASEMGMT ---
TERESA PACK in to pt. room to discuss HHC vs. out-patient PT/ST. Pt. Upon entering room, pt. exited the bathroom and quickly walked to his bed using the FWW. TERESA PACK did not note pt. having ay difficulty with ambulating with the FWW. Pt's dutiater is also present and pt. gives verbal permission for TERESA PACK to discuss his with daughter present. Pt. states he does have a FWW at home and plans to do out-patient therapy. He states he would only be staying at home for a few days. He states he plans to go to [facility] for out-patient PT/ST. Pt. states he feels he has become weaker sine being in the hospital and we discussed how this is to be expected. He states he does feel a bit tottery but does not feel like he is going to fall over. Pt. states he feels he can steady himself well with the FWW. Pt. also states his is always around and can assist him if needed. Pt. states it would be nice to have assistance with transportation to medical appointment (states his does drive, but it would be nice if she could have help). We reviewed that he was provided with resources for transportation by [facility] yesterday and TERESA PACK encouraged pt. to utilize these options/to contact his insurance to see if they can assist in any way. Pt. voices understanding. Pt. declines to receive informaiton on medial alert systems. Pt. denies having any additional questions/concerns at this time.
--- NOTE | 2023-07-24 14:03 | PCM.DC.SUM ---
Providers Date of Admission: 07/21/23 Date of Discharge: 07/24/23 Primary Care Physician: Dr. Yenifer Lopez, DO Consultations 07/21/23 18:10 Consult: Gastroenterology Routine Consulting Provider: [facility] Reason for Consult: Dysphagia EMERGENT Consult: No MD Notified: Yes Date Notified: 07/21/23 Time Notified: 14:36 Method of Notification: ED Physician Initiated Reason For Visit: DYSPHAGIA/OGYNODYSPHAGIA Diagnosis Discharge Diagnosis (1) Dysphagia: Status: Acute Code(s): R13.10 - Dysphagia, unspecified (2) Odynophagia: Status: Acute Code(s): R13.10 - Dysphagia, unspecified Plan #Dysphagia with odynophagia secondary to severe radiation esophagitis #Stage III lung cancer receiving pall radiation Medications at Discharge Home Medications dexamethasone 4 mg tablet 8 mg PO DAILY 07/21/23 nystatin 100,000 unit/mL oral suspension 5 ml PO Q6H 07/21/23 oxycodone 5 mg tablet 5 mg PO Q6H PRN pain 07/21/23 MAGIC MOUTH WASH (BMX) 180 mL suspension 10 ml PO Q4H 30 days #180 mL 07/24/23 metoclopramide HCl 5 mg tablet (Reglan) 2.5 mg (1/2 x 5 mg) PO Q6H 30 days #60 tabs 07/24/23 pantoprazole 40 mg tablet,delayed release (Protonix) 40 mg PO BID 30 days #60 tabs 07/24/23 Hospital Course Procedures EGD Summary of Care Provided Minutes Spent on Discharge: 35 Hospital Course: 73-year-old male history of GERD and dysphagia in the setting of stage III lung cancer receiving palliative radiation who presented to [facility] 07/21/2023 with worsening dysphagia. He was made n.p.o. GI was consulted. He had EGD which demonstrated severe chemotherapy/radiation esophagitis with no bleeding and he had multiple recommendations made per GI. Patient tolerated this well and was stable for discharge home with the following discharge instructions: DISCHARGE INSTRUCTIONS PLEASE READ *Please take this with you to your next doctors appointment* -You will be discharged on Reglan every 6 hours, nystatin which you will use 4 times daily, Protonix 40 mg twice daily (take this instead of omeprazole), and Magic mouthwash to swish, gargle, and swallow every 4-6 hours, hold for sedation -alf use of Reglan (metoclopramide), though the side effect is rare, can be associated with the development of a medical condition called tardive dyskinesia. If you develop any stiff, jerking movements that you cannot control or uncontrollable, abnormal, and repetitive movements especially in your facial muscles please discontinue the medication immediately and contact your physician -It is advised: No aspirin, ibuprofen, naproxen, or other non-steroidal anti-inflammatory drugs for 10 days. -You will need to follow-up with Dr. Coreas with GI in his office upon discharge. Please call his office to schedule your hospital follow-up appointment (ph. [phone]) -Helpful Hints to Manage Swallowing Problems -Cut food into small pieces and chew thoroughly, or puree your food in a sweeping compound blender. -Moisten your food with gravy, sauces, broth, or milk to make it easier to swallow. -Drink sips of liquid between bites of food. -Soft foods are easier to swallow. Try gelatin, yogurt, pudding, pasta, cooked vegetables, canned fruit, soft-cooked eggs, applesauce, cooked cereal, cottage cheese, ice cream, and sherbet. -Cool, but not frozen, foods may be soothing to an irritated throat. -Allow hot foods to cool to room temperature. -Rough foods like nuts, crackers, dry cereal, and raw fruits and vegetables may irritate your throat and esophagus and should be avoided. -[place] foods like oranges, grapefruit, chen, limes, and tomatoes may cause increased discomfort in your throat and esophagus. -Avoid spicy foods. -Do not use alcohol or tobacco. -Use toothpaste that does not contain peroxide. -Use mouthwash that does not contain peroxide or alcohol -Please call your primary care provider's office upon discharge to schedule a hospital follow up within 1 week. -For any concerning signs or symptoms please call 911 or proceed to the nearest emergency department Physical Exam Narrative General: Alert, oriented, thin HEENT: Atraumatic, normocephalic Eyes: Anicteric, normal conjunctiva, extraocular movements grossly intact Neck: Supple Respiratory: Clear to auscultation bilaterally, normal respiratory effort Cardiovascular: Regular rate and rhythm GI: Soft, nontender, nondistended Extremities: No edema Musculoskeletal: Moving all extremities Neuro: No overt focal neurological deficits Skin: No rashes appreciated Psych: Cooperative Medical Records Data Medical Nutrition Assessment Dietitian: Malnutrition Criteria Met Start: 07/22/23 10:23 Freq: Status: Active Protocol: Document 07/22/23 10:23 (Rec: 07/22/23 10:23 [id number]) Nutrition Malnutrition Evidence of Malnutrition Exists Yes Malnutrition (severe): Acute Illness/Injury Evidenced By Suboptimal Energy Intake ( Severe),Weight Loss (Severe), Physical Changes (Severe) Clinical Problem Chronic Disease or Condition Related Malnutrition Etiology severe acute on likely chronic malnutrition related to inadequate energy intake d/t swallowing difficulty Signs/Symptoms as evidenced by unintentional 21.7#/18% wt loss <1-2 months, estimated PO intake meeting < 50% of estimated energy needs > 1 week, severe muscle wasting/fat loss evident per physical exam in orbital, clavicle, acromion, and temporal area, BMI 15.4 Status Active Problem Recommendation Dietitian Recommendations/Changes Recommend advance diet as tolerated to regular-texture/ consistency per HEMATOLOGY NURSE EDUCATOR; ensure w/ meals when diet advanced. If pt agreeable to PEG placement, will provide additional recommendations as indicated. Weight / BMI Weight Weight: 44.565 kg Body Mass Index (BMI) 15.3 ABG / Lab / Microbiology Data 07/24/23 07:15 07/24/23 07:15 Laboratory: Laboratory Results - last 24 hr 07/24/23 07:15: WBC 16.7 H, RBC 4.41 L, Hgb 13.2, Hct 40.2, MCV 91.2, MCH 29.9, MCHC 32.8, RDW Std Deviation 48.7 H, RDW Coeff of Lorri 14.8 H, Plt Count 244, MPV 9.7, Immature Gran % (Auto) 0.500, Neut % (Auto) 91.5 H, Lymph % (Auto) 2.8 L, [place] % (Auto) 5.0, Eos % (Auto) 0.0, Baso % (Auto) 0.2, Absolute Neuts (auto) 15.3 H, Absolute Lymphs (auto) 0.46 L, Nucleated RBC % 0, Differential Comment SCANNED, Sodium 131 L, Potassium 3.8, Chloride 98, Carbon Dioxide 25.0, Anion Gap 8, BUN 24 H, Creatinine 0.83, Estim Creat Clear Calc 50.71, Est GFR (MDRD) Af Amer 118, Est GFR (MDRD) Non-Af 97, BUN/Creatinine Ratio 29.0 H, Glucose 99, Calcium 8.6 D/C Instructions Discharge Diet: - (Pureed diet) Meaningful Use Info Meaningful Use Diagnoses (Choose all that apply): None applicable Discharge Plan Admission Admit Date/Time: 07/21/23 14:32 Primary Reason for Your Visit: Swallowing difficulty Attending Provider: Olena Kraft Primary Care Provider: Yenifer Lopez Consulting Providers: Peter Leon Instructions Patient Instructions: Dysphagia Aspiration Additional Instructions / Restrictions: DISCHARGE INSTRUCTIONS PLEASE READ *Please take this with you to your next doctors appointment* -You will be discharged on Reglan every 6 hours, nystatin which you will use 4 times daily, Protonix 40 mg twice daily (take this instead of omeprazole), and Magic mouthwash to swish, gargle, and swallow every 4-6 hours, hold for sedation -alf use of Reglan (metoclopramide), though the side effect is rare, can be associated with the development of a medical condition called tardive dyskinesia. If you develop any stiff, jerking movements that you cannot control or uncontrollable, abnormal, and repetitive movements especially in your facial muscles please discontinue the medication immediately and contact your physician -It is advised: No aspirin, ibuprofen, naproxen, or other non-steroidal anti-inflammatory drugs for 10 days. -You will need to follow-up with Dr. Coreas with GI in his office upon discharge. Please call his office to schedule your hospital follow-up appointment (ph. [phone]) -Helpful Hints to Manage Swallowing Problems -Cut food into small pieces and chew thoroughly, or puree your food in a sweeping compound blender. -Moisten your food with gravy, sauces, broth, or milk to make it easier to swallow. -Drink sips of liquid between bites of food. -Soft foods are easier to swallow. Try gelatin, yogurt, pudding, pasta, cooked vegetables, canned fruit, soft-cooked eggs, applesauce, cooked cereal, cottage cheese, ice cream, and sherbet. -Cool, but not frozen, foods may be soothing to an irritated throat. -Allow hot foods to cool to room temperature. -Rough foods like nuts, crackers, dry cereal, and raw fruits and vegetables may irritate your throat and esophagus and should be avoided. -[place] foods like oranges, grapefruit, chen, limes, and tomatoes may cause increased discomfort in your throat and esophagus. -Avoid spicy foods. -Do not use alcohol or tobacco. -Use toothpaste that does not contain peroxide. -Use mouthwash that does not contain peroxide or alcohol -Please call your primary care provider's office upon discharge to schedule a hospital follow up within 1 week. -For any concerning signs or symptoms please call 911 or proceed to the nearest emergency department Discharge Orders/Prescriptions Prescriptions: New metoclopramide HCl [Reglan] 5 mg tablet 2.5 mg PO Q6H 30 Days Qty: 60 0RF pantoprazole [Protonix] 40 mg tablet,delayed release (DR/EC) 40 mg PO BID 30 Days Qty: 60 0RF MAGIC MOUTH WASH (BMX) 180 mL suspension 10 ml PO Q4H 30 Days Qty: 180 0RF Rx Instructions: diphenhydramine 12.5 mg/5 mL oral liquid 60 mL; aluminum-mag hydroxide-simethicone 400 mg-400 mg-40 mg/5 mL oral susp 60 mL; Lidocaine Viscous 2 % mucosal solution 60 mL; Per 180 mL Continued oxycodone 5 mg tablet 5 mg PO Q6H PRN (Reason: pain) Rx Instructions: 1-2 TABS Q6H PRN PAIN nystatin 100,000 unit/mL suspension 5 ml PO Q6H dexamethasone 4 mg tablet 8 mg PO DAILY Rx Instructions: WITH BREAKFAST Discontinued omeprazole 40 mg capsule,delayed release(DR/EC) 40 mg PO DAILY Referrals / Follow Up: Yenifer Lopez DO [Primary Care Provider] - Within 1 Week Laci Coreas DO [Med Staff - Active Staff] - Care Physician,No Primary [Non-Staff] - Disposition Disposition (needs filled in before D/C Order can be placed): Home, Self Care Charges/Coding Visit Charges Inpatient E&M: 95551 Disch Hosp >30min
--- NOTE | 2023-07-24 14:35 | CASEMGMT ---
TERESA PACK in to pt. room to verify if pt. would like us to fax the script for out-patient PT/ST to [facility]. Pt states he would like us to do this for him. He also states he does not need us to follow-up or assist him with palliative care as he has been working with [facility] in [place] on this and plans to call them tomorrow for follow-up with them on it since he has not heard back from them for quite a while. TERESA PACK offered to assist pt. with this, but he declines this assistance. TERESA PACK faxed script for outpatient PT/ST to [facility] and then gave original script to pt. as well. Pt. states he would actually prefer to get his D/C medications at [facility] instead. I informed pt we will make the switch of pharmacies for him just this time as he states he wants to use [facility] most often. Pt. denies having any additional need or questions concerning is discharge. No further concerns voiced at this time. TERESA PACK called [facility] and they said that Magic Mouthwash cannot be transferred and said it would be easier if the prescriber were to resubmit the meds to [facility]. TERESA PACK sent backline to Dr. Kraft informing her of this and asking if she could resubmit the D/C meds to [facility]. Dr. Kraft replied stating that she will resubmit the scripts to [facility].
[2023-07-24 15:20] VITALS: BP 140/74; PULSE 72; RESP 18; TEMP 36.4; O2SAT 94
--- NOTE | 2023-07-24 15:23 | PHA.DC.MC.R ---
Pharmacy [facility] has performed discharge medication reconciliation and counseling for this patient. The patient was counseled on the following discharge medications and changes in medications for homegoing were reviewed. 1. REGLAN 2. PROTONIX The Reason for Use, instructions for use, and potential side effects were reviewed for all new medications. The patient's questions regarding all of their medications were answered. The patient was able to verbally demonstrate an understanding of their discharge medications. The patient's discharge medication list was reviewed for discrepancies and discrepancies were resolved. Medications at Discharge Home Medications dexamethasone 4 mg tablet 8 mg PO DAILY 07/21/23 nystatin 100,000 unit/mL oral suspension 5 ml PO Q6H 07/21/23 oxycodone 5 mg tablet 5 mg PO Q6H PRN pain 07/21/23 MAGIC MOUTH WASH (BMX) 180 mL suspension 10 ml PO Q4H 30 days #180 mL 07/24/23 metoclopramide HCl 5 mg tablet (Reglan) 2.5 mg (1/2 x 5 mg) PO Q6H 30 days #60 tabs 07/24/23 pantoprazole 40 mg tablet,delayed release (Protonix) 40 mg PO BID 30 days #60 tabs 07/24/23
== END 2023-07-24 15:20 | disposition home or self-care (01) | DRG 391 ==
LOC: ED 13:34 → MS3 17:02
PROVIDERS: Internal Medicine Gastroenterology; Admitting Provider Family Medicine; Emergency Provider Emergency Medicine; PCP Internal Medicine; Visit Provider Internal Medicine
PROC: 0DJ08ZZ Inspection of Upper Intestinal Tract, Via Natural or Artificial Opening Endoscopic (ICD-10-PCS; CPT 43235; principal; 2023-07-22 15:25)
DX: K20.80 Other esophagitis without bleeding (principal); E43 Unspecified severe protein-calorie malnutrition; C78.1 Secondary malignant neoplasm of mediastinum; B37.81 Candidal esophagitis; C79.51 Secondary malignant neoplasm of bone; M84.48XA Pathological fracture, other site, initial encounter for fracture; C34.31 Malignant neoplasm of lower lobe, right bronchus or lung; Z68.1 Body mass index [BMI] 19.9 or less, adult; I10 Essential (primary) hypertension; F17.210 Nicotine dependence, cigarettes, uncomplicated; T38.0X5A Adverse effect of glucocorticoids and synthetic analogues, initial encounter; T45.1X5A Adverse effect of antineoplastic and immunosuppressive drugs, initial encounter; Y84.2 Radiological procedure and radiotherapy as the cause of abnormal reaction of the patient, or of later complication, without mention of misadventure at the time of the procedure; R13.10 Dysphagia, unspecified; Z79.52 Long term (current) use of systemic steroids
CPT/HCPCS: 36415; 71046; 80048; 80053; 85025; 88305; 92526; 92610; 93005; 97162; 97530; 97802; 99284; J7030; J7050; J7120; A4216

== ENCOUNTER 2023-08-08 07:53 | Emergency (ER) | payer MEDICARE, SELFPAY ==
[2023-08-08 07:54] VITALS: BP 118/63; PULSE 138; RESP 26; TEMP 36; O2SAT 95; BMI 15.7
--- NOTE | 2023-08-08 08:07 | EX.ED.DYSGE1 ---
HPI History of Present Illness Chief Complaint: Weakness Informant: patient Onset/Context/Timing Onset: Month(s) (2-3) Context: Gradual Onset Narrative Narrative: 73-year-old male presents for generalized weakness to the point where he cannot walk and function. Lives at home with his elderly who was not able to help him enough to get around and perform ADLs. He has lung cancer in the right lung, he states it is spread to some of his ribs, and he started getting radiation a couple months ago and the weakness started then. It has been progressively worsening. He states about a month ago he had a fall in which he broke a vertebrae in his mid-upper back, that is hurting, but he has no new pains. He states since he started radiation treatments he is also developed numbness and tingling in both of his legs. He denies any new symptoms in the last day or 2. His appetite is poor, his oral intake is poor, he states everything taste like cardboard which does not help, he is drinking fluids all right, he is taking oxycodone for the back pain which helps, but makes him constipated but otherwise when he has bowel movements they are normal and without blood or melena. He has had approximately a 30 pound weight loss in the past several months due to all of this. PFSH PFSH Medical History Acute prerenal azotemia Depression GERD (gastroesophageal reflux disease) Lung cancer Smoker Home Medications oxycodone 5 mg tablet 5 mg PO Q6H PRN pain 07/21/23 [History Last Taken 07/21/23] MAGIC MOUTH WASH (BMX) 180 mL suspension 10 ml PO Q4H 30 days #180 mL 07/24/23 [Rx Last Taken 08/07/23] metoclopramide HCl 5 mg tablet (Reglan) 2.5 mg (1/2 x 5 mg) PO Q6H 30 days #60 tabs 07/24/23 [Rx Last Taken 08/07/23] pantoprazole 40 mg tablet,delayed release (Protonix) 40 mg PO BID 30 days #60 tabs 07/24/23 [Rx Last Taken 08/07/23] acetaminophen 500 mg capsule 1,000 mg PO Q6H PRN pain 08/08/23 [History Last Taken 08/08/23] gabapentin 100 mg capsule 100 mg PO DAILY 08/08/23 [History Last Taken 08/07/23] omeprazole 40 mg capsule,delayed release 40 mg PO DAILY 08/08/23 [History Last Taken 08/07/23] sennosides 8.6 mg capsule (senna) 8.6 mg PO DAILY 08/08/23 [History Last Taken 08/07/23] Allergy/AdvReac Type Severity Reaction Status Date / Time No Known Allergies Allergy Verified 07/21/23 10:07 Family History (Updated 07/21/23 @ 14:[address] Peter Leon MD) Other Cancer Heart disease Surgical History H/O lymph node excision Social History household members: spouse Smoking Status: Current every day smoker tobacco type: cigarettes substance use type: does not use ROS ROS ED Constitutional Constitutional ED: Reports weakness; Denies chills or fever(s) Eyes Eyes: Denies change in vision or diplopia ENT ENT ED: Denies rhinorrhea or sore throat Cardiovascular Cardiovascular: Denies chest pain or palpitations Respiratory/Chest Respiratory/Chest: Reports dyspnea and other Details: Conversational dyspnea for the last couple of months, better at rest, does not exert himself now due to weakness so unknown there, no orthopnea, and no new symptoms or changes in his breathing. He denies any discomfort with deep inspiration. ; Denies cough Gastrointestinal Gastrointestinal: Reports constipation; Denies abdominal pain, diarrhea, hematochezia, melena, nausea or vomiting Genitourinary Genitourinary ED: Denies dysuria or hematuria Musculoskeletal Musculoskeletal: Reports back pain; Denies neck pain Integumentary Denies abscess or rash Neurologic Neurologic: Reports paresthesias and weakness; Denies headache(s) Psychiatric Psychiatric: Denies anxiety or suicidal thoughts EXAM Physical Exam Const Vital Signs: 08/08/23 07:54 08/08/23 11:25 08/08/23 11:26 Temperature 96.8 F L Temperature Source Oral Pulse Rate 138 H 92 Respiratory Rate 26 H 16 Respiratory Pattern Normal Blood Pressure 118/63 142/70 H Blood Pressure Mean 81 94 Pulse Ox 95 96 Oxygen Delivery Method Room Air Room Air Positive well nourished, well developed and cachectic General Appearance ED: well developed, cachectic and NAD Nutritional Appearance: cachectic HEENT Reports moist mucous membranes normocephalic and atraumatic Eyes PERRL and EOMs intact bilaterally Neck full ROM and supple Resp normal respiratory effort and clear to auscultation bilaterally Resp Narrative: Diminished throughout, clear and equal/symmetric Cardio regular rate, regular rhythm and no murmurs Rate: tachycardic GI non-tender and non-distended Auscultation: normoactive bowel sounds Palpation: soft Back/Spine no CVA tenderness General Back: other FROM Extremity normal to inspection General Extremety ED: Negative for edema, pulses abnormal or tenderness General Extremity: Negative for edema or pulses abnormal Neuro oriented x3 and CN's II-XII intact bilaterally Neuro Narrative: Subjective decrease symmetric sensation both lower extremities, but able to sense light touch. Weaker in the legs than the arms, he can barely lift his legs off the bed for a second or 2, it is symmetric. 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 Cranial nerves intact, normal speech, he is oriented. Sensorium / Orientation: awake and alert Motor Exam: general weakness Psych mental status grossly normal Skin no rashes or lesions noted and no wounds Sepsis Attestation Date exam was performed: 08/08/23 Time exam was performed: 10:30 Possible Source of Sepsis: Pulmonary Sepsis Organ Dysfunction Criteria Present: Lactic Acid > 2 mmol/L (All others negative) Supportive Findings: Tachycardia, mild acute hyperbilirubinemia, severe weakness Fluid Resuscitation Fluid Resuscitation ordered: 30 ml/kg fluid bolus ordered Sepsis Note Date exam was performed: 08/08/23 Time exam was performed: 10:35 Sepsis Attestation: Sepsis re-evaluation was performed (Perfusing well with pink extremities, pulses intact 2+/4 x 4, mentating well, no respiratory distress but mildly tachypneic. Blood pressure stable.) MDM MDM MDM Narrative Medical decision making narrative: Patient is tachycardic, he is tachypneic with conversation, but his respiratory rate slows when he is resting and not talking. He was given empiric IV fluids for possible dehydration, he wanted some ice chips and was allowed to have those, and I offered him something for pain but he states he took Tylenol for his back prior to coming here and he is okay initially although he requested them later and was given morphine. His chest x-ray 2 views shows the right lower lobe pulmonary mass in addition to chronic changes, difficult to rule out new consolidation in the lower lobes on my interpretation. I reviewed radiology's interpretation. Given the large mass, and in order to determine if he truly has an acute infection or a pulmonary embolus that is causing his tachycardia and weakness, or nothing acute and only chronic findings, CT angiography of the chest was obtained to evaluate more completely for all of this. I reviewed the images and the report which I agree with, basically it does show a right lower lobe consolidation, although aspiration pneumonitis is in the differential, has had no vomiting or symptoms of aspiration recently. For this reason I started him on ceftriaxone and azithromycin to cover him for infection. CTA shows no pulmonary embolus, and there are some scattered areas of air within the necrotic right lower lobe pulmonary mass, and according to radiology this raises the suspicion for possible lung abscess. His lactate is 3.0, he has a slight elevated white blood count, platelets are 138, his total bilirubin is slightly elevated, and he is prerenal. Basically sepsis and dehydration, in addition to this infection but not in septic shock and his blood pressures remained good. Heart rate improved with pain medication and fluids. I discussed the CT findings with pulmonary Dr. Hazel, he agrees less likely to be a lung abscess and appropriate for admission here without requiring transfer, patient and family do prefer to stay locally if possible. CT results much more likely to indicate mass necrosis since he has been having radiation for several months. Follows with Dr. Rodarte with regards to hematology/oncology. Patient and family also concerned about nutrition issues since he has been losing weight and had a very poor appetite, he was seen by Dr. Coreas and diagnosed with some esophageal erosions, discussed feeding tube at that point but he declined, he is open to discussing that again. CT also shows cortical destruction of T8 vertebral body and posterior elements with spinal canal and neural foraminal invasion. This was initially not noted on the CT result because the details of these findings were in the findings and not the summary/impression. On further multiple discussions with the family and reviewing old records including prior ED visit 2.5 weeks ago, it seems that the patient had a fall 2 days before his last ER visit, but he was here for different reasons, issues swallowing and getting nutrition. A chest x-ray was obtained, his T8 vertebral fracture was noted on the chest x-ray at that time. He has had no CT scans since then until we did 1 here today seen the fracture. The patient states he has had numbness in his legs and feet since his fall, however he did not note it according to the physician note at that visit. He was also admitted to the hospital, and no scan was performed, to compare with today's scan. Given the amount of weakness and numbness he is having in his legs now compared with his arms, my suspicion is that it is related to his back fracture rather than his current infection, certainly both need to be addressed. In discussing further with patient and family, he initially said that his numbness and tingling in his legs started when he fell, however he was here in the ER and admitted to the hospital, seen by 3 different providers in addition to GI, there is no documentation of the patient mentioning anything about numbness or tingling, and multiple examinations documenting normal neurovascular status in his extremities, and in discussing with this with the patient and family, the patient states that he is not sure exactly when the numbness started. I did confirm though that he did not have any advanced imaging of this fracture until we performed a CT scan including it today. I discussed with spine Dr. Gupta, who recommends that we transfer this patient to a higher level of care namely [facility] since he gets his oncology care there, and discussion with the patient and family they are okay with that, and prefer [facility] if possible since it is closer which I do not disagree with. Accepted there by medicine Dr. Fletcher. At this time, pt not requiring ICU care/bed. History & Record Review Additional record(s) reviewed:: Prior inpatient record, Prior outpatient record and Prior ED visit Lab Data Attestation: I reviewed the patient's lab results. Labs: Laboratory Results - last 24 hr 08/08/23 08:21 WBC 12.5 H RBC 5.14 Hgb 15.8 Hct 47.6 MCV 92.6 MCH 30.7 MCHC 33.2 RDW Std Deviation 55.0 H RDW Coeff of Lorri 17.3 H Plt Count 138 L MPV 10.4 Immature Gran % (Auto) 1.000 H Neut % (Auto) 93.0 H Lymph % (Auto) 2.8 L [place] % (Auto) 2.9 Eos % (Auto) 0.1 Baso % (Auto) 0.2 Absolute Neuts (auto) 11.6 H Absolute Lymphs (auto) 0.35 L Nucleated RBC % 0.2 Diff Path Review May foll Hypersegmented Neuts 1+ H Sodium 134 L Potassium 4.2 Chloride 101 Carbon Dioxide 24.0 Anion Gap 9 BUN 30 H Creatinine 0.82 Estim Creat Clear Calc 52.52 Est GFR (MDRD) Af Amer 118 Est GFR (MDRD) Non-Af 98 BUN/Creatinine Ratio 36.5 H Glucose 96 Lactic Acid 3.0 H* Calcium 10.4 H Total Bilirubin 1.30 H AST 30 ALT 21 Alkaline Phosphatase 174 H Troponin I High Sens 14 Total Protein 7.3 Albumin 1.9 L Globulin 5.4 H Albumin/Globulin Ratio 0.4 L Radiography Chest X-Ray - ED: 2 View, Read by ED Physician, Chronic Changes and - (R mass, seems more prominent c/w prior) Diagnostic Testing: Clinical Impression(s) from Imaging Studies Chest X-Ray 08/08/23 08:30 IMPRESSION: Redemonstration of 7 cm right lower lobe mass, compatible with the history of lung cancer. Chronic lung disease with increased bibasilar opacities from pneumonia or pneumonitis. Electronically Signed: Ángela Rodríguez MD at 8:58 EST , Chest CTA 08/08/23 09:30 IMPRESSION: 6.1 x 6.6 cm necrotic right paraspinal mass centered at the T8 level extending into the right lower lobe with extensive osseous destruction compatible with the history of lung cancer. Small air-fluid levels in the pulmonary portion of the mass, raising the possibility of superimposed infection or abscess. Spinal canal and neural foraminal invasion as above with pathologic fractures. Right lower lobe mucus plugging or aspiration with right lower lobe pneumonia or pneumonitis. Advanced emphysema with biapical scarring. No evidence of pulmonary embolism. Electronically Signed: Ángela Rodríguez MD at 10:15 EST , Rhythm Strip Rhythm Strip: Sinus Tach Rate: 135 Ectopy: None EKG Initial EKG: Attestation: I personally reviewed and interpreted this EKG as follows: Interpretation: No Acute Injury Pattern, Sinus Tachycardia (rate 137; axis WNL), S-T Elevation (0.5 mm AVR only) and S-T Depression (1-2 mm diffusely respiratory) Prior: Changed (3 wks ago) Management Discussion w/another healthcare provider: Hospitalist (transfer due to spine pathologic fx) and Spiritual Care Coordinator (Pulmonary, spine surgery) Discharge Plan Triage Chief Complaint: Weakness Other Complaint: Back ED Provider: Chalino Calderon Dx/Rx/DC Orders Clinical Impression: Cancer of right lung, Sepsis, Pneumonia, Poor nutrition, Pathological fracture of thoracic vertebra Prescriptions: No Action oxycodone 5 mg tablet 5 mg PO Q6H PRN (Reason: pain) Rx Instructions: 1-2 TABS Q6H PRN PAIN metoclopramide HCl [Reglan] 5 mg tablet 2.5 mg PO Q6H 30 Days Qty: 60 0RF pantoprazole [Protonix] 40 mg tablet,delayed release (DR/EC) 40 mg PO BID 30 Days Qty: 60 0RF MAGIC MOUTH WASH (BMX) 180 mL suspension 10 ml PO Q4H 30 Days Qty: 180 0RF Rx Instructions: diphenhydramine 12.5 mg/5 mL oral liquid 60 mL; aluminum-mag hydroxide-simethicone 400 mg-400 mg-40 mg/5 mL oral susp 60 mL; Lidocaine Viscous 2 % mucosal solution 60 mL; Per 180 mL gabapentin 100 mg capsule 100 mg PO DAILY omeprazole 40 mg capsule,delayed release(DR/EC) 40 mg PO DAILY acetaminophen 500 mg capsule 1,000 mg PO Q6H PRN (Reason: pain) senna 8.6 mg capsule 8.6 mg PO DAILY Primary Care Provider: Yenifer Lopez Referrals: Yenifer Lopez DO [Primary Care Provider] - Disposition Disposition: Acute Care Hospital Discharge Location: [facility]
[2023-08-08] MEDS: 0.9% Normal Saline (1000mL) 1,000 ML 1000 ML IV ×2 (08:28→11:20)
[2023-08-08 08:30] LABS: Absolute Lymphocyte Count 0.35 X10^3/uL (0.83-4.51); Absolute Neutrophil Count 11.6 X10^3/uL (2.0-7.7); Basophil# 0.03 X10^3/uL; Basophil% 0.2 % (0-1); Eosinophil# 0.01 X10^3/uL; Eosinophils% 0.1 % (0-5); Hematocrit 47.6 % (40-54); Hemoglobin 15.8 g/dL (13.0-16.5); Lymphocyte # 0.35 X10^3/ul (0.83-4.51); Lymphocyte % 2.8 % (19-41); Mean Corp Hgb Conc 33.2 g/dL (32-36); Mean Corpuscular Hgb 30.7 pg (27.0-32.0); Mean Corpuscular Volume 92.6 fL (80-94); Mean Platelet Vol. 10.4 fl (6.2-12.0); Monocyte# 0.36 X10^3/uL; Monocyte% 2.9 % (0-10); NRBC Flagged by Analyzer 0.2 % (0-5); Neutrophil # 11.62 X10^3/uL (2.7-7.7); POSITIVE DIFFERENTIAL YES; Platelet Count 138 K/mm3 (150-450); RBC Distribution Width CV 17.3 % (11.6-14.6); Red Blood Count 5.14 M/mm3 (4.6-6.2); White Blood Count 12.5 K/mm3 (4.4-11.0)
--- NOTE | 2023-08-08 08:30 | RAD_ITS ---
HISTORY: SOB, lung cancer. TECHNIQUE: XR Chest 2 Views. COMPARISON: 07/21/2023. FINDINGS: CARDIOMEDIASTINAL BORDERS: Cardiac silhouette within normal limits in size. Calcification of the aortic knob. LUNGS: 7 cm right lower lobe mass. Hyperinflation with chronic coarse interstitial markings and bibasilar scarring suggesting COPD. Increased bibasilar opacities. PLEURA: No pleural effusion or pneumothorax seen. OSSEOUS STRUCTURES: Chronic severe midthoracic compression fracture. RAD/Chest PA and Lateral IMPRESSION: Redemonstration of 7 cm right lower lobe mass, compatible with the history of lung cancer. Chronic lung disease with increased bibasilar opacities from pneumonia or pneumonitis. Electronically Signed: Ángela Rodríguez MD at 8:58 EST ,
[2023-08-08 08:35] LABS: Differential Indicated SCAN CRITERIA MET
[2023-08-08 09:00] LABS: Hypersegmented Neutrophils 1+
[2023-08-08 09:05] LABS: ALB/GLOB Ratio 0.4 RATIO (0.9-2.4); AST(SGOT) 30 U/L (15-37); Alanine Aminotransfer ALT/SGPT 21 U/L (16-61); Albumin, Serum 1.9 g/dL (3.2-5.0); Alkaline Phosphatase 174 U/L (45-117); Anion Gap 9 (5-15); BUN 30 mg/dL (7-18); BUN/Creat Ratio 36.5 RATIO (10-20); Calcium,Total 10.4 mg/dL (8.5-10.1); Chloride 101 mmol/L (98-107); Creatinine, Serum 0.82 mg/dL (0.70-1.30); EST Glomerular Filtration Rate 98 mL/min (>60); Est Glom Filt Rate - Afr Amer 118 mL/min (>60); Estimated Creatinine Clearance 52.52 ml/min; Globulin 5.4 g/dL (2.2-4.2); Glucose 96 mg/dL (74-106); Potassium 4.2 mmol/L (3.5-5.1); Protein, Total 7.3 g/dL (6.4-8.2); Sodium Level 134 mmol/L (136-145); Troponin-I HS 14 pg/mL (3.0-78.0)
--- NOTE | 2023-08-08 09:30 | CT_ITS ---
HISTORY: SOB, mass, tachycardia, PE vs. pneumonia. TECHNIQUE: CT angiogram of the chest was performed after the intravenous administration of 75 mL Isovue 370. Post-processing of the angiographic images was performed with multiplanar reformation and 3D reconstruction. Individualized dose optimization techniques were used for this CT. 1041 images. COMPARISON: XR same day. FINDINGS: CENTRAL AIRWAYS: Partial opacification of the right lower lobe bronchus with wall thickening and partial opacification of the more distal airways. LUNGS: Mild dependent alveolar opacities in the right lower lobe Moderate emphysema with biapical scarring. PLEURA: No pneumothorax or significant pleural effusion. HEART/PERICARDIUM: Heart within normal limits in size with coronary artery disease. No pericardial effusion. PULMONARY ARTERIES: No filling defect. AORTA/VESSELS: No thoracic aortic aneurysm or dissection flap. Right and noncalcified ulcerated plaque in the aorta. MEDIASTINUM/GLORIA: No pathologically enlarged lymph nodes. OSSEOUS STRUCTURES: Mildly angulated pathologic fracture of the right seventh rib posteriorly. Expansile lytic lesion of the right eighth rib posteriorly with 6.1 x 6.6 cm extraosseous soft tissue mass extending into the right lower lobe, chest wall, and right paraspinal soft tissues. Right lower lobe pulmonary portion of the mass demonstrates necrosis with small air-fluid levels. Cortical destruction of the right T8 vertebral body and posterior elements with spinal canal and neural foraminal invasion. Cortical erosion of the right ninth rib with extension of lytic lesion into the right T9 vertebral body and posterior elements. Severe T8 compression fracture. UPPER ABDOMEN: Unremarkable. CT/CTA Chest W/WO Contrast IMPRESSION: 6.1 x 6.6 cm necrotic right paraspinal mass centered at the T8 level extending into the right lower lobe with extensive osseous destruction compatible with the history of lung cancer. Small air-fluid levels in the pulmonary portion of the mass, raising the possibility of superimposed infection or abscess. Spinal canal and neural foraminal invasion as above with pathologic fractures. Right lower lobe mucus plugging or aspiration with right lower lobe pneumonia or pneumonitis. Advanced emphysema with biapical scarring. No evidence of pulmonary embolism. Electronically Signed: Ángela Rodríguez MD at 10:15 EST Reading Location ID and State: [id number] / [place] Tel , Service support ,
[2023-08-08] MEDS: Morphine 4 MG/ML Syringe IV ×2 (10:35→15:42)
[2023-08-08] MEDS: Ceftriaxone 2 GM in 0.9% Normal Saline (50mL MB+) 50 ML IV (10:46)
[2023-08-08] MEDS: Azithromycin 500 MG in Dextrose 5%-Water (250mL Bag) 250 ML 250 MG IV (11:20)
[2023-08-08 11:25] VITALS: BP 142/70; PULSE 92; RESP 16; O2SAT 96
[2023-08-08] MEDS: 0.9% Normal Saline (500mL Bag) 500 ML 999 ML IV (11:28)
[2023-08-08 12:24] LABS: Reflex Lactate? Y
[2023-08-08 13:05] VITALS: BP 115/64; PULSE 89; RESP 16; O2SAT 94
[2023-08-08 14:27] VITALS: BP 118/79; PULSE 86; RESP 16; O2SAT 94
[2023-08-08] MEDS: Acetaminophen 500 MG Tablet 1000 MG PO (14:27)
[2023-08-11 13:20] LABS: Pathologist Review Reviewed
== END 2023-08-08 15:59 | disposition short-term general hospital (02) ==
PROVIDERS: Emergency Provider Emergency Medicine; PCP Internal Medicine; Visit Provider Emergency Medicine
DX: A41.9 Sepsis, unspecified organism (principal); C34.91 Malignant neoplasm of unspecified part of right bronchus or lung; M84.48XA Pathological fracture, other site, initial encounter for fracture; F17.210 Nicotine dependence, cigarettes, uncomplicated; E86.0 Dehydration; J18.9 Pneumonia, unspecified organism; J10.1 Influenza due to other identified influenza virus with other respiratory manifestations; Z79.899 Other long term (current) drug therapy
CPT/HCPCS: 71046; 71275; 80053; 83605; 84484; 85025; 87428; 93005; 96365; 96366; 96367; 96375; 96376; 99285; J7030; Q9967; A4216; J0696